=== PATIENT | male | born 1960 | race Caucasian/White ===

== ENCOUNTER 2022-01-12 10:03 | Emergency (ER) | payer OTHER, SELFPAY ==
[2022-01-12 10:26] VITALS: BP 129/85; PULSE 90; RESP 18; TEMP 36.8; O2SAT 98
--- NOTE | 2022-01-12 10:48 | ED.URI ---
HPI - URI/Sore Throat General Chief Complaint: Ear Stated Complaint: lt ear pain Time Seen by Provider: 01/12/22 10:40 Source: patient Mode of arrival: ambulatory Limitations: no limitations History of Present Illness HPI Narrative: Patient presents today complaining of left ear pressure and pain since this morning. Denies decreased hearing or drainage. He has had some ongoing nasal congestion and sinus symptoms for the last several days as well. He currently rates pain 6/10 and has tried no medication for symptoms prior to arrival as he states he has run out of his [employer]. Related Data Home Medications Medication Instructions Recorded Confirmed aspirin 81 mg tablet,delayed 1 tablet DAILY 01/12/22 01/12/22 release diclofenac sodium 75 mg 1 tablet PO DAILY 01/12/22 01/12/22 tablet,delayed release ezetimibe 10 mg tablet 1 tablet DAILY 01/12/22 01/12/22 lisinopril 10 mg tablet 1 tablet DAILY 01/12/22 01/12/22 pantoprazole 40 mg tablet,delayed 1 tablet PO DAILY 01/12/22 01/12/22 release Allergies Allergy/AdvReac Type Severity Reaction Status Date / Time No Known Allergies Allergy Verified 01/12/22 10:31 Review of Systems Review of Systems: CONSTITUTIONAL: Denies body aches, fever, chills, or sweats. EYES: Denies visual changes, redness, or discharge. ENT: Denies rhinorrhea, sore throat. + Congestion, left ear pain CARDIOVASCULAR: Denies chest pain, palpitations, or edema. RESPIRATORY: Denies cough or dyspnea. GASTROINTESTINAL: Denies abdominal pain, nausea, vomiting, or diarrhea. GENITOURINARY: Denies dysuria or hematuria. SKIN: Denies rash, itching, or wounds. MUSCULOSKELETAL: Denies back pain, joint pain, or myalgia. NEUROLOGIC: Denies headache, numbness, tingling, or weakness. PSYCH: Denies depression or anxiety. PMFSH Comments At time of signature, I have reviewed and agree with nursing past medical, surgical, social and family history unless otherwise noted. Please see nursing chart for further information. There is no relevant family history pertinent to the presenting complaint Exam Narrative: GENERAL: Well-appearing, well-nourished, and in no acute distress. HEAD: Normocephalic, atraumatic. EYES: EOMI. No redness or drainage. Conjunctivae normal. ENT: Mucous membranes pink and moist. Nares clear. No rhinorrhea. Right TM normal. Left TM erythematous and bulging. Throat normal. NECK: Normal AROM. Supple. No lymphadenopathy. CHEST: No respiratory distress. Clear to auscultation. HEART: Regular rate and rhythm. No murmur appreciated. Normal peripheral pulses. EXTREMITIES: Normal range of motion. No edema. SKIN: Warm, dry, no rash. Capillary refill normal. Normal skin turgor. NEURO: No focal deficits. Alert and oriented x3. Gait steady. PSYCH: Normal affect. No signs of depression or anxiety. Course Course Level of Care: Express Care Visit Vital Signs Vital signs: Vital Signs Temperature 98.2 F 01/12/22 10:26 Pulse Rate 90 01/12/22 10:26 Respiratory Rate 18 01/12/22 10:26 Blood Pressure 129/85 01/12/22 10:26 Pulse Oximetry 98 01/12/22 10:26 Oxygen Delivery Room Air 01/12/22 10:26 Temperature 98.2 F 01/12/22 10:26 Pulse Rate 90 01/12/22 10:26 Respiratory Rate 18 01/12/22 10:26 Blood Pressure 129/85 01/12/22 10:26 Pulse Oximetry 98 01/12/22 10:26 Oxygen Delivery Room Air 01/12/22 10:26 Reviewed. Pt has been instructed to follow up with his PCP regarding his elevated blood pressure today. MDM - URI/Sore Throat Differential Diagnosis Differential diagnosis: Likely upper respiratory infection, otitis media, sinusitis and other (otitis externa, ruptured TM, serous otitis, eustachian tube dysfunction) Discharge Plan Discharge Clinical Impression: Acute left otitis media Patient Disposition: Home, Self-Care Condition: Stable Instructions: Antibiotic Form, Ear Infection (GEN) Additional Instructions: Take Augmentin an
== END 2022-01-12 11:03 | disposition home or self-care (01) ==
PROVIDERS: Emergency Provider Nurse Practitioner
DX: H66.92 Otitis media, unspecified, left ear (principal); E78.00 Pure hypercholesterolemia, unspecified; I10 Essential (primary) hypertension; M19.90 Unspecified osteoarthritis, unspecified site
CPT/HCPCS: 99213; G0463

== ENCOUNTER 2022-06-15 03:58 | Emergency (ER) | payer OTHER, SELFPAY ==
--- NOTE | ~2022-06-15 | XR_ITS ---
XR chest 2V DATE: 06/15/2022 04:21 INDICATION: Chest pain TECHNIQUE: Portable upright AP chest on 06/15/2022 at 0418 hours COMPARISON: 03/08/2019 2 view chest FINDINGS: Borderline heart size. No pulmonary infiltrate or consolidation, pleural effusion or pulmonary mass congestion or pneumothor ax. Severe bilateral glenohumeral osteoarthritis. Mild thoracic dextroscoliosis. IMPRESSION: No active pulmonary disease Severe bilateral glenohumeral osteoarthritis Reviewed, dictated and finalized at location A. TAL MARKETING ANALYST
[2022-06-15 04:04] VITALS: BP 165/93; PULSE 70; RESP 14; TEMP 36.4; O2SAT 99
--- NOTE | 2022-06-15 04:05 | ECG_ITS ---
Measurements Intervals [place] Rate: 71 P: 26 [place]: 168 QRS: 35 QRSD: 88 T: 39 QT: 371 QTc: 404 Interpretive Statements SINUS RHYTHM NORMAL ECG NO PREVIOUS ECG AVAILABLE FOR COMPARISON Electronically Signed On 06-15-2022 9:11:33 SHOTGUN SHELL REPRINTING UNIT OPERATOR by Orlando Cedillo D.O.
[2022-06-15 04:16] LABS: Basophils Percent Auto 0.5 % (0.2-1.2); Eosinophils Absolute Auto 0.5 K/mm3 (0-0.3); Eosinophils Percent Auto 6.4 % (0-4.4); Hematocrit 46.1 % (42.0-52.0); Hemoglobin 15.3 g/dL (14.0-18.0); Immature Granulocyte Absolute 0.03 K/mm3 (0.00-0.031); Immature Granulocyte Percent A 0.4 % (0-0.5); Lymphocytes Absolute Auto 1.55 K/mm3 (0.9-3.2); Lymphocytes Percent Auto 20.2 % (18.3-44.2); Mean Corpuscular HGB Conc 33.2 g/dl (32-36); Mean Corpuscular Hemoglobin 31.9 pg (26-34); Mean Platelet Volume 9.8 fl (7.4-10.4); Monocytes Absolute Auto 0.6 K/mm3 (0.1-0.6); Monocytes Percent Auto 7.9 % (2.6-8.5); Neutrophils Percent Auto 64.6 % (45.5-73.1); Platelet Count Result 211 k/mm3 (150-375); Red Cell Distribution Width 13.7 % (11.5-14.5); White Blood Count 7.7 K/mm3 (4.5-10.0)
--- NOTE | 2022-06-15 04:16 | ED.CHESTPAIN ---
HPI - Chest Pain General Chief Complaint: Chest Pain Stated Complaint: chest pain Time Seen by Provider: 06/15/22 04:04 History of Present Illness HPI narrative: Patient is a 61-year-old male with a history of CAD status post stent, hypertension, hyperlipidemia presenting with chest pain. Patient states that he woke from sleep approximately 6 hours ago with left-sided chest squeezing. States that he also feels very anxious and restless. States that he took some Xanax to see if it would help since he has anxiety. States that it initially helped a little but then the pain returned. He denies shortness of breath, diaphoresis, nausea. Denies radiation to his back. Denies recent fevers, cough, abdominal pain, leg swelling. Related Data Home Medications Medication Instructions Recorded Confirmed aspirin 81 mg tablet,delayed 1 tablet DAILY 01/12/22 01/12/22 release diclofenac sodium 75 mg 1 tablet PO DAILY 01/12/22 01/12/22 tablet,delayed release ezetimibe 10 mg tablet 1 tablet DAILY 01/12/22 01/12/22 lisinopril 10 mg tablet 1 tablet DAILY 01/12/22 01/12/22 pantoprazole 40 mg tablet,delayed 1 tablet PO DAILY 01/12/22 01/12/22 release Allergies Allergy/AdvReac Type Severity Reaction Status Date / Time No Known Allergies Allergy Verified 06/15/22 04:08 Review of Systems Review of Systems: All systems reviewed & are unremarkable except as noted in HPI and below Exam Narrative: GENERAL: Anxious appearing but in no acute distress HEAD: Normocephalic, atraumatic. EYES: PERRLA and EOMI. ENT: Nares clear, no rhinorrhea or epistaxis. Mucous membranes moist. NECK: Supple. CHEST: Clear to auscultation. No respiratory distress. No chest wall tenderness HEART: Regular rate and rhythm. No murmur heard. Normal peripheral pulses. ABDOMEN: Soft, nontender, nondistended, normal active bowel sounds. EXTREMITIES: Normal range of motion. No edema. SKIN: Warm, dry, no rash. NEURO: No focal deficits. Alert and oriented x3. PSYCH: Very anxious and fidgety Course Vital Signs Vital signs: Vital Signs Temperature 97.6 F 06/15/22 04:04 Pulse Rate 70 06/15/22 04:04 Respiratory Rate 14 06/15/22 04:04 Blood Pressure 165/93 H 06/15/22 04:04 Pulse Oximetry 99 06/15/22 04:04 Oxygen Delivery Room Air 06/15/22 04:04 Temperature 97.6 F 06/15/22 04:04 Pulse Rate 60 06/15/22 05:50 Respiratory Rate 17 06/15/22 05:50 Blood Pressure 151/93 H 06/15/22 05:50 Pulse Oximetry 99 06/15/22 05:50 Oxygen Delivery Room Air 06/15/22 04:04 MDM - Chest Pain MDM Narrative Medical decision making narrative: Patient is a 61-year-old male presenting with chest pain. Patient is hypertensive, though his vitals are within normal limits. Exam remarkable for the above. EKG per my interpretation shows normal sinus rhythm, normal axis and intervals, no ST elevations or depressions. It appears similar to prior EKG from 2016. Patient states that the nitro did nothing for his pain. Patient was given a dose of morphine which she states helped for about 20 minutes. Repeat EKG was obtained for ongoing chest pain. Per my interpretation it shows normal sinus rhythm, no ST elevations or depressions, no changes from prior EKG. We will add a D-dimer. Patient's pulled me aside to let me know that the patient's dad was placed on hospice earlier today. She is concerned that symptoms are related to anxiety and panic stemming from this. Patient was given a dose of Ativan and had significant improvement of his symptoms. He was able to rest comfortably. Troponin is undetectable. HEART score is 3. Patient and his are asking to go home. Discussed with the patient that if he has any more chest pain then I would want to keep him in the hospital. Patient states that he wants to go home and he will return if anything gets worse. Advised very close PCP follow-up. Patient discharged in stable condition. Lab Data 06/15
[2022-06-15 04:28] LABS: Alanine Aminotransferase 64 U/L (6-50); Albumin Level 4.3 g/dL (3.5-5.1); Alkaline Phosphatase 109 U/L (38-126); Anion Gap 9 mmol/L (8-16); Aspartate Amino Transferase 51 U/L (17-59); Bilirubin,Total 0.6 mg/dL (0.2-1.3); Blood Urea Nitrogen 17 mg/dL (9-20); Calcium 9.3 mg/dL (8.4-10.2); Carbon Dioxide 25 mmol/L (22-30); Chloride 106 mmol/L (98-107); Estimated CRCL calculation 95 ml/min; Estimated Glomerular Filt Rate > 60; Glucose 122 mg/dL (65-110); Lipase 85 U/L (23-300); Potassium 4.5 mmol/L (3.4-5.0); Sodium 140 mmol/L (137-145)
[2022-06-15] MEDS: ASPIRIN 81 MG CHEWABLE TABLET 324 MG PO (04:28)
[2022-06-15] MEDS: NITROGLYCERIN SL 0.4 MG TABLET SUBLINGUAL (04:29)
[2022-06-15 04:33] LABS: Prothrombin Time 13.1 Seconds (11.1-14.7)
[2022-06-15 04:34] VITALS: BP 172/103
[2022-06-15 04:34] LABS: Partial Thromboplastin Time 28.1 SECONDS (22.3-36.8)
--- NOTE | 2022-06-15 04:34 | PC.NURSE ---
2nd nitro tab given SL.
[2022-06-15 04:39] LABS: Troponin I < 0.012 ng/mL (0.000-0.034)
[2022-06-15 04:40] VITALS: BP 151/98
--- NOTE | 2022-06-15 04:40 | PC.NURSE ---
3rd nitro given SL.
[2022-06-15] MEDS: MORPHINE SULFATE (*CRX) 4 MG/ML INJ IV PUSH (04:45)
[2022-06-15 05:00] VITALS: PULSE 64
[2022-06-15] MEDS: LORazepam INJ (*CRX) 2 MG/ML VIAL 1 MG IV PUSH (05:44)
[2022-06-15 05:50] VITALS: BP 151/93; PULSE 60; RESP 17; O2SAT 99
[2022-06-15 06:47] LABS: D Dimer 0.68 ug/mL (<0.48)
--- NOTE | 2022-06-15 06:59 | ECG_ITS ---
Measurements Intervals [place] Rate: 63 P: 27 [place]: 175 QRS: 41 QRSD: 89 T: 42 QT: 388 QTc: 400 Interpretive Statements SINUS RHYTHM NORMAL ECG COMPARED TO ECG 06/15/2022 04:08:48 NO SIGNIFICANT CHANGES Electronically Signed On 06-15-2022 9:11:44 TRIM MACHINE ADJUSTER by Orlando Cedillo D.O.
== END 2022-06-15 07:00 | disposition home or self-care (01) ==
PROVIDERS: Emergency Provider Emergency Medicine; PCP Nurse Practitioner Family
DX: R07.89 Other chest pain (principal); F41.9 Anxiety disorder, unspecified; I10 Essential (primary) hypertension; E78.5 Hyperlipidemia, unspecified; I25.10 Atherosclerotic heart disease of native coronary artery without angina pectoris; Z95.5 Presence of coronary angioplasty implant and graft; Z79.82 Long term (current) use of aspirin
CPT/HCPCS: 36415; 71046; 80053; 83690; 84484; 85025; 85380; 85610; 85730; 93005; 96374; 96375; 99284; A9270; J2060; J2270

== ENCOUNTER 2025-03-12 11:14 | Emergency (ER) | payer OTHER, SELFPAY ==
--- OUTSIDE RECORDS SUMMARY | 2024-09-26 10:30 | XMS_ITS ---
Author Organization [facility] Address [address] [facility] [address] [place], [place] [id number] Care Team Providers Care Sand Car Worker Name Role Phone Ruchi Ivory Primary Care Provider Unavailab Tito Murray Unavailable [phone] REASON FOR VISIT hearing aid evaluation Encounters Encounter Location Date Provider Diagnosis [facility] [address] [place], [place] [id number] 09/26/2024 Tito Hale Mixed conductive and sensorineural hearing loss, unilateral, right ear, with unrestricted hearing on the contralateral side H90.71 Assessments Encounter Date Diagnosis (ICD Code) Assessment Notes Treatment Notes Treatment Clinical Notes Section Notes 09/26/2024 Mixed conductive and sensorineural hearing loss, unilateral, right ear, with unrestricted hearing on the contralateral side (ICD-10 - H90.71) Plan Of Treatment No Information Progress Notes * Sahil WILLISDOB:1960 ( 64 yo M)Acc No.[id number]:09/26/2024 Progress Note Patient: Sahil CUI Provider: Maureen Hale DO :1960 A ge:63 Y S ex:Male Date:09/26/2024 Address:[address] [facility] [place], [place] Pcp:Ruchi Ivory Subjective: * Chief Complaints: * 1 . Hearing aid evaluation. * Medical History: Objective: * Vitals: * Physical Examination: Assessment: * Assessment: 1. M ixed conductive and sensorineural hearing loss, unilateral, right ear, with unrestricted hearing on the contralateral side - H90.71 Plan: * Treatment: * Procedure Codes: V 5010 ASSESSMENT FOR HEARING AID * Images: * Electronic signature of Yonatan Hale DO on 03/12/2025 at 11:17 AM CDT Sign off status: Pending * Provider: Maureen Hale DO Date: 0 09/26/2024 Generated for Harris torres/Emily/Ferminitting on: 0 03/12/2025 11:17 AM CDT
--- OUTSIDE RECORDS SUMMARY | 2024-10-27 10:00 | XMS_ITS ---
Author Organization [facility] [place] Address [address] [facility] [address] [place], [place] [id number] Care Team Providers Care Farm Hand Name Role Phone Ruchi Ivory Primary Care Provider Unavailab Tito Murray Unavailable [phone] REASON FOR VISIT hearing aid fitting Encounters Encounter Location Date Provider Diagnosis [facility] [address] [place] [id number] 10/27/2024 Tito Hale Mixed conductive and sensorineural hearing loss, unilateral, right ear, with unrestricted hearing on the contralateral side H90.71 Assessments Encounter Date Diagnosis (ICD Code) Assessment Notes Treatment Notes Treatment Clinical Notes Section Notes 10/27/2024 Mixed conductive and sensorineural hearing loss, unilateral, right ear, with unrestricted hearing on the contralateral side (ICD-10 - H90.71) Plan Of Treatment No Information Progress Notes * Sahil WILLISDOB:1960 ( 64 yo M)Acc No.[id number]:10/27/2024 Progress Note Patient: Sahil CUI Provider: Maureen Hale DO :1960 A ge:63 Y S ex:Male Date:10/27/2024 Address:[address] [facility] Pcp:Ruchi Ivory Subjective: * Chief Complaints: * 1 . Hearing aid fitting. * Medical History: Objective: * Vitals: * Physical Examination: Assessment: * Assessment: 1. M ixed conductive and sensorineural hearing loss, unilateral, right ear, with unrestricted hearing on the contralateral side - H90.71 Plan: * Treatment: * Procedure Codes: V 5257 HEARING AID DIGITAL MONAURAL BTE, Modifiers: LT * Images: * Electronic signature of Yonatan Hale DO on 03/12/2025 at 11:16 AM CDT Sign off status: Pending * Provider: Maureen Hale DO Date: 0 10/27/2024 Generated for Harris torres/Emily/Ferminitting on: 0 03/12/2025 11:16 AM CDT
--- OUTSIDE RECORDS SUMMARY | 2025-03-12 11:16 | XMS_ITS | Encounter Summary ---
Author Organization [facility] Address [address] [place] [address] Care Team Providers Care Library Media Specialist Name Role Phone Ruchi Ivory NP Primary Care Provider [phone] Ruchi Ivory NP Unavailable [phone] Nicho Rosales MD Unavailable [phone] Encounter Details Date Type Department Care Team (Late st Contact Info) Description 06/20/2024 [email or web address] Systemst Message Enc [facility] Orthopedic & Sports Medicine - [place] [address] [place] [address] Tito Julien MD [address] [place] [address] Lidocaine patches Social History Tobacco Use Types Packs/Day Years Used Date Smoking Tobacco: Former Cigarettes Q uit: 08/31/2018 Passive Smoke Exposure: Never Smokeless Tobacco: Current Chew Comments:RD to psychosocial rehabilitation counselor Alcohol Use Standard Drinks/Week Comments Yes 0 (1 standard drink = 0.6 oz pur e alcohol) socially ON WEEKENDS AUDIT-C Answer Date Recorded Frequency of Alcohol Consumption 2-3 times a wee k 01/27/2020 Average Number of Drinks 10 or more 020 Frequency of Binge Drinking Weekly 01/17 PHQ-2 Answer Date Recorded Patient Health Questionnaire-2 Score 0 06/07/2024 Sex and Gender Information Value Date Recorded Sex Assigned at Male 07/25/2022 10:25 AM FELT HANGER Legal Sex Male 10:27 PM CDT Gender Identity Male 07/25/2022 10:25 AM FELT HANGER Sexual Orientation Straight 07/25/2022 10 :25 AM FELT HANGER 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 Answer Date of Assessment Author Status No 01/11/2019 1:57 PM CDT Activ e * Do you have serious difficulty walking or climbing stairs? Answer Date of Assessment Author Status No 01/11/2019 1:57 PM CDT Maryann Shine R N Active * Do you have difficulty dressing or bathing? Answer Date of Assessment Author Status No 01/11/2019 1:57 PM CDT Maryann Shine R N Active * Because of a physical, mental, or emotional condition, do you have difficulty doing errands alone such as visiting a doctor's office or shopping? Answer Date of Assessment Author Status No 01/11/2019 1:57 PM CDT Maryann Shine R N Active documented as of this encounter Mental Status * Because of a physical, mental, or emotional condition, do you have serious difficulty concentrating, remembering, or making decisions? Answer Entry Date Author Status No 01/11/2019 1:57 PM CDT Maryann Shine R N Active documented in this encounter Progress Notes * Shantel Raphael MA - 06/21/2024 8:28 AM CST Patient requesting lidocaine patches for shoulders, to Dr. Julien for review HANGER documented in this encounter Plan of Treatment Upcoming Encounters Date Type Department Care Team (Late st Contact Info) Description 03/27/2025 7:40 AM CDT Office Visit [facility] - [place] [address] [place] [address] Tito Julien MD [address] [place] [address] 03/27/2025 8:20 AM CDT Office Visit [facility] - [place] [address] [place] [address] Itz Rodrigez DO [address] [facility] [address] [place] [address] 04/21/2025 8:00 AM CDT Office Visit [facility] Family Medicine - [place] [address] [facility] [address] [place] [address] Ruchi Ivory NP [address] [place] [address] 09/01/2025 9:00 AM FELT HANGER [facility] [address] [place] [address] Maryann Fernandez PA [address] [facility], [address] [place] [address] documented as of this encounter Visit Diagnoses Not on filedocumented in this encounter Additional Health Concerns Assessment Noted Time PHQ-9 Depression Total Score: 0 06/07/20 24 8:06 AM FELT HANGER documented as of this encounter Care Teams Library Media Specialist Relationship Specialty Start Date End Date Ruchi Ivory NP [address] [place] [address] PCP - General NURSE PRACTITIONER 06/23/22 Ruchi Ivory NP [address] [place] [address] NURSE PRACTITIONER 06/23/22 Nicho Rosales MD [facility] [place]. [place] [address] [place] [address] [place] Plumber Helper INTERVENTIONAL CARDIOLOGY 09/03/18 documented as of this encounter
--- OUTSIDE RECORDS SUMMARY | 2025-03-12 11:16 | XMS_ITS | Encounter Summary ---
Author Organization [facility] Address [address] [place] [address] Care Team Providers Care Dialysis Equipment Technician Name Role Phone Ruchi Ivory NP Primary Care Provider [phone] Ruchi Ivory NP Unavailable [phone] Nicho Rosales MD Unavailable [phone] Encounter Details Date Type Department Care Team (Latest Contact Info) Description 09/30/2024 HYLT Aviationt Message Enc [facility] Orthopedic & Sports Medicine - [place] [address] [place] [address] Tito Julien MD [address] [place] [address] Shoulder excruciating pain Social History Tobacco Use Types Packs/Day Years Used Date Smoking Tobacco: Former Cigarettes Q uit: 08/31/2018 Passive Smoke Exposure: Never Smokeless Tobacco: Current Chew Comments:RD to queen's counsel Alcohol Use Standard Drinks/Week Comments Yes 0 [...] Sex Assigned at Male 07/25/2022 10:25 AM SANITATION TRUCK CLEANER Legal Sex Male 10:27 PM CDT Gender Identity Male 07/25/2022 10:25 AM SANITATION TRUCK CLEANER Sexual Orientation Straight 07/25/2022 10 :25 AM SANITATION TRUCK CLEANER 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 Not [...] R N Active documented in this encounter Plan of Treatment Upcoming Encounters Date Type Department Care Team (Late st Contact Info) Description 03/27/2025 7:40 AM CDT Office Visit [facility] Orthopedic & Sports Medicine - [place] [address] [place] [address] Tito Julien MD [address] [place] [address] 03/27/2025 8:20 AM CDT Office Visit [facility] - [address] [address] Itz Rodrigez DO [address] [facility] [address] [place] [address] 04/21/2025 8:00 AM CDT Office Visit [facility] Family Medicine - [place] [address] [facility] [address] [place] [address] Ruchi Ivory NP [address] [place] [address] [place] [address] 09/01/2025 9:00 AM SANITATION TRUCK CLEANER Office Visit [place] [facility] [address] [place] [address] Maryann Fernandez PA [address] [facility], [address] [place], [place] [address] documented as of this encounter Visit Diagnoses Not on filedocumented in this encounter Additional Health Concerns Assessment Noted Time PHQ-9 Depression Total Score: 0 06/07/20 8:06 AM SANITATION TRUCK CLEANER documented as of this encounter Care Teams Dialysis Equipment Technician Relationship Specialty Start Date End Date Ruchi Ivory NP [address] [place] [address] PCP - General NURSE PRACTITIONER 06/23/22 Ruchi Ivory NP [address] [place] [address] NURSE PRACTITIONER 06/23/22 Nicho Rosales MD [facility]. [place] [address] [place], [place] [address] [place] Recorder Helper [employer]ing INTERVENTIONAL CARDIOLOGY 09/03/18 documented as of this encounter
--- OUTSIDE RECORDS SUMMARY | 2025-03-12 11:16 | XMS_ITS | Encounter Summary ---
Author Organization [facility] Address [address] [place] [address] Care Team Providers Care Claims Representative Name Role Phone Ruchi Ivory NP Primary Care Provider [phone] Ruchi Ivory NP Unavailable [phone] Nicho Rosales MD Unavailable [phone] Encounter Details Date Type Department Care Team (Late st Contact Info) Description 05/06/2024 Glydet Message Enc [facility] Medical [facility] Orthopedic & Sports Medicine - [place] [address] [place] [address] Tito Julien MD [address] [place] [address] Appointment Social History Tobacco Use Types Packs/Day Years Used Date Smoking Tobacco: Former Cigarettes Q uit: 08/31/2018 Passive Smoke Exposure: Never Smokeless Tobacco: Current Chew Comments:RD to dependency counselor Alcohol Use Standard Drinks/Week Comments Yes 0 (1 standard drink = 0.6 oz pur e alcohol) socially ON WEEKENDS AUDIT-C Answer Date Recorded Frequency of Alcohol Consumption 2-3 times a wee k 01/27/2020 Average Number of Drinks 10 or more 020 Frequency of Binge Drinking Weekly 01/17 PHQ-2 Answer Date Recorded Patient Health Questionnaire-2 Score 0 07/24/2023 Sex and Gender Information Value Date Recorded Sex Assigned at Male 07/25/2022 10:25 AM CABLE ENGINEER Legal Sex Male 10:27 PM CDT Gender Identity Male 07/25/2022 10:25 AM CABLE ENGINEER Sexual Orientation Straight 07/25/2022 10 :25 AM CABLE ENGINEER 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 Not [...] Description 03/27/2025 7:40 AM CDT Office Visit [facility] Orthopedic & Sports Medicine - [place] [address] [place] [address] Tito Julien MD [address] [place] [address] 03/27/2025 8:20 AM CDT Office Visit [facility] Pulmonology Specialty Clinic - [address] [address] Itz Rodrigez DO [address] [facility] [address] [place] [address] 04/21/2025 8:00 AM CDT Office Visit [facility] Medical [facility] Family Medicine - [place] [address] [facility] [address] [place] [address] Ruchi Ivory NP [address] [place] [address] 09/01/2025 9:00 AM CABLE ENGINEER Office Visit [place] [facility] [address] [place] [address] Maryann Fernandez PA 3 [facility], [address] [place] [address] documented as of this encounter Visit Diagnoses Not on filedocumented in this encounter Care Teams Claims Representative Relationship Specialty Start Date End Date Ruchi Ivory NP [address] [place] [address] PCP - General NURSE PRACTITIONER 06/23/22 Ruchi Ivory NP [address] [place] [address] NURSE PRACTITIONER 06/23/22 Nicho Rosales MD [facility]. [place] [address] [place], [place] [address] [place] Shearing Machine Operator INTERVENTIONAL CARDIOLOGY 09/03/18 documented as of this encounter
--- OUTSIDE RECORDS SUMMARY | 2025-03-12 11:16 | XMS_ITS | Encounter Summary ---
Author Organization [facility] Address [facility] [place] [address] Care Team Providers Care Gripper Attacher Name Role Phone Ruchi Ivory NP Primary Care Provider [phone] Ruchi Ivory NP Unavailable [phone] Nicho Rosales MD Unavailable [phone] Encounter Details Date Type Department Care Team (Late st Contact Info) Description 11/01/2024 MyChart Message Enc [facility] Pul[facility] Specialty Clinic - [address] [address] Itz Rodrigez, DO 3 [facility] [address] [place] [address] Surgery Social History Tobacco Use Types Packs/Day Years Used Date Smoking Tobacco: Former Cigarettes Q uit: 08/31/2018 Passive Smoke Exposure: Never Smokeless Tobacco: Current Chew Comments:RD to chromosomal disorders counselor Alcohol Use Standard Drinks/Week Comments Yes 0 (1 standard drink = 0.6 oz pur e alcohol) socially ON WEEKENDS AUDIT-C Answer Date Recorded Frequency of Alcohol Consumption 2-3 times a wee k 01/27/2020 Average Number of Drinks 10 or more 020 Frequency of Binge Drinking Weekly 01/17 PHQ-2 Answer Date Recorded Patient Health Questionnaire-2 Score 0 10/24/2024 Sex and Gender Information Value Date Recorded Sex Assigned at Male 07/25/2022 10:25 AM BOTTLER HELPER Legal Sex Male 10:27 PM CDT Gender Identity Male 07/25/2022 10:25 AM BOTTLER HELPER Sexual Orientation Straight 07/25/2022 10 :25 AM BOTTLER HELPER Occupation Industry Job Start Date Job End Date [employer] Not on file Not on file Not [...] Description 03/27/2025 7:40 AM CDT Office Visit [facility] Medical [facility] Orthopedic & Sports Medicine - [place] [address] [place] [address] Tito Julien MD [address] [place] [address] 03/27/2025 8:20 AM CDT Office Visit [facility] [address] [address] Itz Rodrigez DO 3 [facility] [address] [place] [address] 04/21/2025 8:00 AM CDT Office Visit [facility] Family Medicine - [place] [address] [facility] [address] [place] [address] [address]uchi Ivory NP [address] [place] [address] 09/01/2025 9:00 AM BOTTLER HELPER Office Visit [facility] [address] [place] [address] Maryann Fernandez PA 3 [facility], [address] [place] [address] documented as of this encounter Visit Diagnoses Not on filedocumented in this encounter Additional Health Concerns Assessment Noted Time PHQ-9 Depression Total Score: 0 06/07/20 8:06 AM BOTTLER HELPER documented as of this encounter Care Teams Gripper Attacher Relationship Specialty Start Date End Date Ruchi Ivory NP [address] [place] [address] PCP - General NURSE PRACTITIONER 06/23/22 Ruchi Ivory NP [address] [place] [address] NURSE PRACTITIONER 06/23/22 Nicho Rosales MD Three [facility]. [place] [address] [place], [place] [address] [place] Tip Inserter INTERVENTIONAL CARDIOLOGY 09/03/18 documented as of this encounter
--- OUTSIDE RECORDS SUMMARY | 2025-03-12 11:17 | XMS_ITS | Encounter Summary ---
Author Organization [facility] Address [address] [place] [address] Care Team Providers Care Activities Aide Name Role Phone Jessica Negrete Carley [facility] Primary Care Provider + Ruchi Ivory NP Primary Care Provider [phone] Ruchi Ivory NP Unavailable [phone] Nicho Rosales MD Unavailable [phone] Encounter Details Date Type Department Care Team (Late st Contact Info) Description 12/25/2018 Abstract [facility] CONVERSION [address] [place] [address] , Generic Conversion, Social History Tobacco Use Types Packs/Day Years Used Date Smoking Tobacco: Former Cigarettes Q uit: 08/31/2018 Smokeless Tobacco: Current Chew Alcohol Use Standard Drinks/Week Comments Yes 0 (1 standard drink = 0.6 oz pur e alcohol) occasionally Sex and Gender Information Value Date Recorded Sex Assigned at Male 07/25/2022 10:25 AM GLASS CARRIER Legal Sex Male 10:27 PM CDT Gender Identity Male 07/25/2022 10:25 AM GLASS CARRIER Sexual Orientation Straight 07/25/2022 10 :25 AM GLASS CARRIER 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 Not on file Not on file documented as of this encounter Plan of Treatment Upcoming Encounters Date Type Department Care Team (Late st Contact Info) Description 03/27/2025 7:40 AM CDT Office Visit [facility] [place] [place] [address] [place] [address] Tito Julien MD [address] [place] [address] 03/27/2025 8:20 AM CDT Office Visit [facility] Medical [facility] Pulmonology Specialty Clinic - [place] [address] [place] [phone] Itz Rodrigez DO 3 [facility] [address] [place] [address] 04/21/2025 8:00 AM CDT Office Visit [facility] Family Medicine - [place] [address] [facility] [address] [place] [address] Ruchi Ivory, OVIDIO [address] [place] [address] 09/01/2025 9:00 AM GLASS CARRIER Office Visit [facility] [address] [place] [address] Maryann Fernandez, PA 3 [facility], [address] [place] [address] documented as of this encounter Visit Diagnoses Not on filedocumented in this encounter Additional Health Concerns Infection Onset Date Last Indicated Resolved Time COVID-19 Rule Out 07/02/2022 07/02/2022 07/02/2022 8:52 AM GLASS CARRIER COVID-19 Rule Out 07/02/2022 07/02/2022 07/03/2022 2:53 PM GLASS CARRIER documented as of this encounter Care Teams Activities Aide Relationship Specialty Start Date End Date Jessica Negrete, INSPECTOR STRUCTURAL BONDING-BC [address] [place] [phone] PCP - General NURSE PRACTITIONER 08/20/18 06/22/22 Ruchi Ivory NP [address] [place] [address] PCP - General NURSE PRACTITIONER 06/23/22 Ruchi Ivory NP [address] [place] [address] NURSE PRACTITIONER 06/23/22 Nicho Rosales MD [facility] [address] [facility], [place] [id number] Alexandra Automatic Equipment Technician INTERVENTIONAL CARDIOLOGY 09/03/18 documented as of this encounter
--- OUTSIDE RECORDS SUMMARY | 2025-03-12 11:17 | XMS_ITS | Clinical Summary ---
Author Organization [facility] Address [address] [place] [address] Care Team Providers Care Diet Therapist Name Role Phone Ruchi Ivory MD Primary Care Provider [phone] Allergies Active Allergy Reactions Criticality Noted Date Comments Fzdtoad-Tya-Zwn Reductase Inhibitors Muscle pain Medium 01/06/[address] (VOLTAREN) 75 mg EC tablet TAKE 1 TABLET BY MOUTH TWICE DAILY WITH FOOD NEEDED 12/10/19 16 Active lisinopril (PRINIVIL,ZESTRIL) 5 mg tablet Take 1 tablet (5 mg total) by mouth daily. 30 tablet 09/02/19 19 Active Additional Information Patient not taking.Reported on 05/11/[address] (PROTONIX) 40 mg EC tabletIndications:T reatment of Non-Bleeding Gastric Disorder Take 1 tablet (40 mg total) by mouth daily. 30 tablet 09/02/19 19 Active aspirin 81 mg chewable tabletIndications:C erebral Thromboembolism Prevention,Cerebral Ischemia Take 1 tablet (81 mg total) by mouth daily. 30 tablet 09/02/19 19 Active aspirin-calcium carbonate 81 mg-300 mg calcium(777 mg) tablet Take 81 mg by mouth daily 11/24/19 14 Active clopidogreL (PLAVIX) 75 mg tablet clopidogrel 75 mg tablet 11/30/19 20 Active fluticasone propionate (FLONASE) 50 mcg/actuation nasal spray fluticasone propionate 50 mcg/actuation nasal spray,suspensio n Active evolocumab 140 mg/mL pen injector Inject 1 mL (140 mg total) under the skin every 2 (two) weeks 07/25/19 Active Durolane 60 mg/3 mL syringe 04/15/20 Active silver sulfadiazine (SILVADENE, SSD) 1 % cream Apply topically daily 05/08/20 Active testosterone cypionate (DEPO-TESTOTERONE) 200 mg/mL injection 1 mL (200 mg total) once a week Active Active Problems Problem Noted Date Diagnosed Date Atherosclerotic heart diseas e of [place] coronary artery without angina pectoris 01/06/2023 Overview (01/06/2023): Last Assessment & Plan: No anginal symptoms Continued on MMT with aspirin and Zetia Adding repatha Dyslipidemia 01/06/2023 Overview (01/06/2023): Last Assessment & Plan: Most recent lipid panel obtained June 2022 with an LDL of 121. Currently on Zetia 10 mg a day. Previous intolerance to statins Adding repatha Repeat lipid alt and ck in 2 months Chronic pain of both shoulders 11/28/2022 Atherosclerotic heart diseas e of [place] coronary artery without angina pectoris 04/10/2020 Chest pain 04/10/2020 Dyslipidemia 04/10/2020 Gout 04/10/2020 Mixed hyperlipidemia 04/10/2020 Prediabetes 03/21/2020 Cramps of lower extremity 03/08/2019 Hypertensive disorder 03/08/2019 Gastroesophageal reflux disease without esophagi tis 03/08/2019 Obesity 03/08/2019 Ex-smoker 02/16/2019 TIA (transient ischemic attack) 01/11/2019 History of CVA (cerebrovascular accident) 2018 Status post insertion of micheal g-eluting stent into left anterior descending artery 11/08/2018 Essential hypertension 11/08/2018 Overview (01/06/2023): Last Assessment & Plan: Well-controlled on current regimen continued on lisinopril 10 mg a day History of artificial joint 08/20/2016 Osteoarthritis of knee 05/24/2015 Arthropathy of hand 02/27/2014 Pain of hand 02/27/2014 Immunizations Immunization Administration Dates Next Due Influenza, Quadrivalent, Spl it, Preservative Free, Intramuscular 04/30/2023,09/01/2018 Influenza, Trivalent, Preser vative Free, Intramuscular 04/08/2012 Influenza, Unspecified 05/20/2022,2020,07/03/2020,09/01,08/31/2015,04/08/2012 Pneumococcal Polysaccharide PPV23 03/08/2019 Tdap 03/08/2019 Surgical History Surgery Date Site/Laterality Comments JOINT REPLACEMENT CELIAC ARTERY STENT Medical History Medical History Date Comments Arthritis Hypertension Hypercholesteremia Stroke (HCC) Family History Medical History Relation Name Comments Arthritis Father Family history of arthritis - (Added by TW Conv) Arthritis Mother Family history of arthritis - (Added by TW Conv) Relation Name Status Comments Father Mother Social History Tobacco Use Types Packs/Day Years Used Date Smoking Tobacco: Former Cigarettes 0.5 15 2 004 - 2018 Smokeless Tobacco: Current Chew Tobacco Cessation:Ready to Q uit: No; Counseling Given: Yes Comments:Also chews tobacco Alcohol Use Standard Drinks/Week Comments Yes 10 (1 standard drink = 0.6 oz pu re alcohol) PHQ-2 Answer Date Recorded PHQ-2 Score 0 03/10/2019 Sex and Gender Information Value Date Recorded Sex Assigned at Not on file Legal Sex Male 8:07 PM INFORMATICS PHYSICIAN LIAISON Gender Identity Not on file Sexual Orientation Not on file Obstetrics History Last Filed Vital Signs Vital Sign Reading Time Taken Comments Blood Pressure 125/77 12/24/2018 11:29 AM CDT Pulse 85 12/24/2018 11:29 AM CDT Temperature 36.6 C (97.9 F) 09/01/2018 1:00 PM INFORMATICS PHYSICIAN LIAISON Respiratory Rate 18 09/01/2018 1:00 PM INFORMATICS PHYSICIAN LIAISON Oxygen Saturation 96% 09/01/2018 1:00 PM INFORMATICS PHYSICIAN LIAISON Inhaled Oxygen Concentration - - Weight 106.6 kg (235 lb) 04/10/2020 8:49 AM CDT Height 177.8 cm (5' 10) 04/10/2020 8:49 AM CDT Body Mass Index 33.72 04/10/2020 8:49 AM CDT Plan of Treatment Health Maintenance Due Date Last Done Comments Colon Cancer Screening-Colonoscopy 1961 Hepatitis C Screening 1960 Prostate Cancer Screening-PSA 1961 Hepatitis B Screening 11/17/1979 Regular Well Visit/Exam 18-64 11/17/1979 Zoster Vaccine (1 of 2) 11/17/2011 Depression Screening 08/31/2019 08/31/2018, 08/31/19 19 Influenza Vaccine (#1) 2025 3, 05/20/2022, 06/06/2021, Additional history exists DTaP/Tdap/Td Vaccine (2 - Td or Tdap) 03/08/2029 03/08/2019 Pneumococcal vaccine <65 Aged Out 03/08/2019 No longer eligible based on patient's age to complete this topic Insurance [facility] OPEN ACCESS [facility] Advance Directives For more information, please contact: [phone] * Full Code (Latest Code Status on File) Date Activated Date Inactivated Comments 08/31/2018 11:11 PM 09/01/2018 9:35 PM Care Teams Diet Therapist Relationship Specialty Start Date End Date Ruchi Ivory MD PCP - General Nurse Practitioner 01/06/23
--- OUTSIDE RECORDS SUMMARY | 2025-03-12 11:17 | XMS_ITS | Encounter Summary ---
Author Organization [facility] Address [address] [place] [address] Care Team Providers Care Fabrication And Assembly Supervisor Name Role Phone Ruchi Ivory NP Primary Care Provider [phone] Ruchi Ivory NP Unavailable [phone] Nicho Rosales MD Unavailable [phone] Encounter Details Date Type Department Care Team (Late st Contact Info) Description 03/28/2024 Ocisiont Message Enc [facility] Medical Group Family Medicine - [place] [address] [facility] [address] [place] [address] Ruchi Ivory, OVIDIO [address] [place], [place] [id number] Blood clot Social History Tobacco Use Types Packs/Day Years Used Date Smoking Tobacco: Former Cigarettes Q uit: 08/31/2018 Passive Smoke Exposure: Never Smokeless Tobacco: Current Chew Comments:RD to counseling program leader Alcohol Use Standard Drinks/Week Comments Yes 0 [...] Sex Assigned at Male 07/25/2022 10:25 AM THERMOPLASTIC TECHNICIAN Legal Sex Male 10:27 PM CDT Gender Identity Male 07/25/2022 10:25 AM THERMOPLASTIC TECHNICIAN Sexual Orientation Straight 07/25/2022 10 :25 AM THERMOPLASTIC TECHNICIAN 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 * Yecenia Jordan MD - 04/04/2024 10:19 AM CDT Xray results look reassuring. I suspect conservative observation will be what Ruchi recommends, but I will defer to her. She will be here tomorrow. * Tiara Murray MA - 04/01/2024 10:30 AM CDT I tried calling the radiology department but no one answered. I will try again later. * Ruchi Ivory NP - 04/01/2024 10:13 AM CDT Can you call radiology to see if someone can read pt's xrays that are still in process. documented in this encounter Plan of Treatment Upcoming Encounters Date Type Department Care Team (Late st Contact Info) Description 03/27/2025 7:40 AM CDT Office Visit [facility] Orthopedic & Sports Medicine - [place] [address] [place] [address] Tito Julien MD [address] [place] [address] 03/27/2025 8:20 AM CDT Office Visit [facility] Pulmonology Specialty Clinic - [address] [phone] Itz Rodrigez DO 3 [facility] [address] [place] [address] 04/21/2025 8:00 AM CDT Office Visit [facility] Family Medicine - [place] [address] [facility] [address] [place] [address] Ruchi Ivory NP [address] [place] [address] 09/01/2025 9:00 AM THERMOPLASTIC TECHNICIAN [facility] [address] [place] [address] Maryann Fernandez PA 3 [facility], [address] [place] [address] documented as of this encounter Visit Diagnoses Not on filedocumented in this encounter Care Teams Fabrication And Assembly Supervisor Relationship Specialty Start Date End Date Ruchi Ivory NP [address] [place] [address] PCP - General NURSE PRACTITIONER 06/23/22 Ruchi Ivory NP [address] [place] [address] NURSE PRACTITIONER 06/23/22 Nicho Rosales MD [address] [facility]. [address] [place] [address] [place] Stonemason Apprentice INTERVENTIONAL CARDIOLOGY 09/03/18 documented as of this encounter
--- OUTSIDE RECORDS SUMMARY | 2025-03-12 11:17 | XMS_ITS | Encounter Summary ---
Author Organization [facility] Address [facility] [place] [address] Care Team Providers Care Child Adolescent Care Name Role Phone Ruchi Ivory NP Primary Care Provider [phone] Ruchi Ivory NP Unavailable [phone] Nicho Rosales MD Unavailable [phone] Encounter Details Date Type Department Care Team (Late st Contact Info) Description 02/18/2024 Conferensumt Message Enc [facility] Medical Group Pulmonology Specialty Clinic [address] [address] Itz Rodrigez DO 3 [facility] [address] [place] [address] Follow up Social History Tobacco Use Types Packs/Day Years Used Date Smoking Tobacco: Former Cigarettes Q uit: 08/31/2018 Passive Smoke Exposure: Never Smokeless Tobacco: Current Chew Comments:RD to insurance counsel Alcohol Use Standard Drinks/Week Comments Yes [...] Sex Assigned at Male 07/25/2022 10:25 AM DISPATCHER CHIEF COAL SLURRY Legal Sex Male 10:27 PM CDT Gender Identity Male 07/25/2022 10:25 AM DISPATCHER CHIEF COAL SLURRY Sexual Orientation Straight 07/25/2022 10 :25 AM DISPATCHER CHIEF COAL SLURRY 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 Not [...] Description 03/27/2025 7:40 AM CDT Office Visit [facility] Medical Group Orthopedic & Sports Medicine - [place] [address] [place] [address] Tito Julien MD [address] [place] [address] 03/27/2025 8:20 AM CDT Office Visit [facility] Medical Group Pulmonology Specialty Clinic [address] [address] Itz Rodrigez DO 3 [facility] [address] [place] [address] 04/21/2025 8:00 AM CDT Office Visit [facility] Medical Group Family Medicine - [place] [address] [facility] [address] [place] [address] Ruchi Ivory NP [address] [place] [address] [place] [address] 09/01/2025 9:00 AM DISPATCHER CHIEF COAL SLURRY Office Visit [place] [facility] [address] [place] [phone] Maryann Fernandez PA 3 [facility], [address] [place] [address] documented as of this encounter Visit Diagnoses Not on filedocumented in this encounter Care Teams Child Adolescent Care Relationship Specialty Start Date End Date Ruchi Ivory NP [address] [place] [address] [place] [address] PCP - General NURSE PRACTITIONER 06/23/22 Ruchi Ivory NP [address] [place] [address] NURSE PRACTITIONER 06/23/22 Nicho Rosales MD Three [facility]. [address] [place], [place] [address] [place] Hot End Operator INTERVENTIONAL CARDIOLOGY 09/03/18 documented as of this encounter
--- OUTSIDE RECORDS SUMMARY | 2025-03-12 11:17 | XMS_ITS | Encounter Summary ---
Author Organization [facility] Address [address] [place] [address] Care Team Providers Care Computer Graphic Artist Name Role Phone Ruchi Ivory NP Primary Care Provider [phone] Ruchi Ivory NP Unavailable [phone] Nicho Rosales MD Unavailable [phone] Encounter Details Date Type Department Care Team (Late st Contact Info) Description 12/28/2023 [place] Message [facility] [address] [place] [address] Nicho Rosales MD [address] [address] Carotid Artery Social History Tobacco Use Types Packs/Day Years Used Date Smoking Tobacco: Former Cigarettes Q uit: 08/31/2018 Passive Smoke Exposure: Never Smokeless Tobacco: Current Chew Comments:RD to counselor manager Alcohol Use Standard Drinks/Week Comments Yes 0 [...] Sex Assigned at Male 07/25/2022 10:25 AM OBSTETRIC ANAESTHETIST Legal Sex Male 10:27 PM CDT Gender Identity Male 07/25/2022 10:25 AM OBSTETRIC ANAESTHETIST Sexual Orientation Straight 07/25/2022 10 :25 AM OBSTETRIC ANAESTHETIST 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 If he is having any concerning stroke like symptoms, then recommend ER for expedited evaluation. Otherwise, keep scheduled carotids in January. * Venita Coppola RN - 12/29/2023 9:42 AM CDT Please advise. * Camille Saldivar - 12/29/2023 9:17 AM CDT Earliest carotid in [place] is 01/21. Pt highly concerned about waiting that long since the patient has a history of strokes. wants to know if we can do this as stat? * Venita Coppola RN - 12/29/2023 9:00 AM CDT . * Venita Coppola RN - 12/28/2023 4:48 PM CDT Please schedule thank you! * ARVIN Wen - 12/28/2023 4:14 PM CDT Please order bilateral carotid ultrasound DX carotid artery calcifications * Venita Coppola RN - 12/28/2023 4:07 PM CDT Please advise. documented in this encounter Plan of Treatment Upcoming Encounters Date Type Department Care Team (Late st Contact Info) Description 03/27/2025 7:40 AM CDT Office Visit [facility] Medical Group Orthopedic & Sports Medicine - [place] [address] [place] [address] Tito Julien MD [address] [place] [address] 03/27/2025 8:20 AM CDT Office Visit [facility] Medical Group Pulmonology Specialty Clinic - [place] [address] [place] [address] Itz Rodrigez DO 3 [facility] [address] [place] [address] 04/21/2025 8:00 AM CDT Office Visit [facility] Medical [facility] Family Medicine - [place] [address] [facility] [address] [place] [address] Ruchi Ivory NP [address] [place] [address] 09/01/2025 9:00 AM OBSTETRIC ANAESTHETIST Office Visit [facility] [address] [place] [phone] Maryann Fernandez PA 3 [facility], [address] [place] [address] documented as of this encounter Visit Diagnoses Not on filedocumented in this encounter Care Teams Computer Graphic Artist Relationship Specialty Start Date End Date Ruchi Ivory NP [address] [place] [address] PCP - General NURSE PRACTITIONER 06/23/22 Ruchi Ivory NP [address] [place] [address] NURSE PRACTITIONER 06/23/22 Nicho Rosales MD Three [facility]. [address] [place] [address] [place] Lead Architect INTERVENTIONAL CARDIOLOGY 09/03/18 documented as of this encounter
--- OUTSIDE RECORDS SUMMARY | 2025-03-12 11:17 | XMS_ITS | Patient Health Record ---
Author Organization [facility] Address [address] [facility] [address] [place], [place] [address] Care Team Providers Care Harness Mender Name Role Phone Ruchi Ivory Primary Care Provider Unavailab Tito Murray Unavailable [phone] Migration, Provider Unavailable Unavailable Allergies No Known Allergies Reason For Referral No Information Medications Medication SIG (Take, Route, Frequency, Duration) Notes Start Date End Date Status Diclofenac Potassium *Please rev iew and pick correct strength-formulatio n from Medispan options. If intended option is not shown, discontinue and re-order from Quick Search* Active Aspirin Low Dose *Please review and pick correct strength-formulatio n from Medispan options. If intended option is not shown, discontinue and re-order from Quick Search* Active Pantoprazole Sodium *Please revi ew and pick correct strength-formulatio n from Medispan options. If intended option is not shown, discontinue and re-order from Quick Search* Active Lisinopril *Please review a nd pick correct strength-formulatio n from Medispan options. 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 (disorder) (2709730254) Mixed conductive and sensorineural hearing loss, unilateral, right ear, with unrestricted hearing on the contralateral side (H90.71) Active confirmed Encounters Encounter Location Date Provider Diagnosis [facility] [address] [facility] [address] [place], [place] [id number] 07/02/2024 Provider Migration [facility] [address] [facility] [address] [place], [place] [id number] 09/26/2024 Tito Hale Mixed conductive and sensorineural hearing loss, unilateral, right ear, with unrestricted hearing on the contralateral side H90.71 [facility] [place] [address] [place], [place] [id number] 10/27/2024 Tito Hale Mixed conductive and sensorineural hearing loss, unilateral, right ear, with unrestricted hearing on the contralateral side H90.71 [facility] [address] [facility] [address] [place], [place] [id number] 03/28/2024 Tito Hale Sensorineural hearin g loss, unilateral, left ear, with restricted hearing on the contralateral side H90.A22 and Encounter for examination of ears and hearing without abnormal findings Z01.10 [facility] [address] [facility] [address] [place], [place] [id number] 07/27/2024 Tito Hale Sensorineural hearin g loss, unilateral, left ear, with restricted hearing on the contralateral side H90.A22 and Other specified disorders of Eustachian tube, left ear H69.82 [facility] [address] [facility] [address] [place], [place] [id number] 09/09/2024 Tito Hale [facility] [address] [facility] [address] [place], [place] [id number] 09/29/2024 Tito Hale Assessments Encounter Date Diagnosis (ICD Code) Assessment Notes Treatment Notes Treatment Clinical Notes Section Notes 09/26/2024 Mixed conductive and sensorineural hearing loss, unilateral, right ear, with unrestricted hearing on the contralateral side (ICD-10 - H90.71) 10/27/2024 Mixed conductive and sensorineural hearing loss, unilateral, right ear, with unrestricted hearing on the contralateral side (ICD-10 - H90.71) 03/28/2024 Sensorineural hearing loss, unilateral, left ear, with restricted hearing on the contralateral side (ICD-10 - H90.A22) unchanged per the pt, will repeat audio in 3 mos 03/28/2024 Encounter for examination of ears and hearing without abnormal findings (ICD-10 - Z01.10) 07/27/2024 Sensorineural hearing loss, unilateral, left ear, with restricted hearing on the contralateral side (ICD-10 - H90.A22) hearing aid evaluation hearing conservation measures discussed Follow up in one year for annual audiogram. 07/27/2024 Other specified disorders of Eustachian tube, left ear (ICD-10 - H69.82) Plan Of Treatment No Information Insurance Providers Payer Name Payer Address Payer Phone Subscriber Number Group Number Insured Name Patient Relationship to Insured Coverage Start Date Coverage End Date [facility] [address] [place] [address] [id number] Sahil Self - patient is the insured
--- OUTSIDE RECORDS SUMMARY | 2025-03-12 11:17 | XMS_ITS | Encounter Summary ---
Author Organization [facility] Address [address] [place] [address] Care Team Providers Care Pre Billing Clinician Name Role Phone Ruchi Ivory NP Primary Care Provider [phone] Ruchi Ivory NP Unavailable [phone] Nicho Rosales MD Unavailable [phone] Encounter Details Date Type Department Care Team (Late st Contact Info) Description 03/09/2024 Viroprot Message Enc [facility] Family Medicine - [place] [address] [facility] [address] [place] [phone] Ruchi Ivory, OVIDIO [address] [place], [place] [phone] Shoulder Social History Tobacco Use Types Packs/Day Years Used Date Smoking Tobacco: Former Cigarettes Q uit: 08/31/2018 Passive Smoke Exposure: Never Smokeless Tobacco: Current Chew Comments:RD to peer counselor Alcohol Use Standard Drinks/Week Comments Yes [...] Sex Assigned at Male 07/25/2022 10:25 AM BRIQUETTE MACHINE OPERATOR Legal Sex Male 10:27 PM CDT Gender Identity Male 07/25/2022 10:25 AM BRIQUETTE MACHINE OPERATOR Sexual Orientation Straight 07/25/2022 10 :25 AM BRIQUETTE MACHINE OPERATOR Occupation Industry Job Start Date Job End Date [employer] Not on file Not on file Not [...] Medical Group Orthopedic & Sports Medicine - [place] [address] [place] [address] Tito Julien MD [address] [place] [address] 03/27/2025 8:20 AM CDT Office Visit [facility] Pulmonology Specialty Clinic - [address] [address] RodrigezItz kwok DO 3 [facility] [address] [place] [address] 04/21/2025 8:00 AM CDT Office Visit [facility] Family Medicine - [place] [address] [facility] [address] [place] [address] Ruchi Ivory NP [address] [place] [address] 09/01/2025 9:00 AM BRIQUETTE MACHINE OPERATOR Office Visit [place] [facility] [address] [place] [phone] Maryann Fernandez PA 3 [facility], [address] [place] [address] documented as of this encounter Visit Diagnoses Not on filedocumented in this encounter Care Teams Pre Billing Clinician Relationship Specialty Start Date End Date Ruchi Ivory NP [address] [place] [address] PCP - General NURSE PRACTITIONER 06/23/22 Ruchi Ivory NP [address] [place] [address] NURSE PRACTITIONER 06/23/22 Nicho Rosales MD Three [facility]. [address] [place], [place] [address] [place] Cherry Pitter INTERVENTIONAL CARDIOLOGY 09/03/18 documented as of this encounter
--- OUTSIDE RECORDS SUMMARY | 2025-03-12 11:17 | XMS_ITS | Encounter Summary ---
Author Organization [facility] Address [address] [place] [address] Care Team Providers Care Machine Heddle Cleaner Name Role Phone Ruchi Ivory NP Primary Care Provider [phone] Ruchi Ivory NP Unavailable [phone] Nicho Rosales MD Unavailable [phone] Encounter Details Date Type Department Care Team (Late st Contact Info) Description 10/06/2023 [facility] Message Enc [facility] Orthopedic & Sports Medicine - [place] [address] [place] [address] Tito Julien MD [address] [place] [address] Shoulder shots Social History Tobacco Use Types Packs/Day Years Used Date Smoking Tobacco: Former Cigarettes Q uit: 08/31/2018 Passive Smoke Exposure: Never Smokeless Tobacco: Current Chew Comments:RD to credit counselor Alcohol Use Standard Drinks/Week Comments Yes 0 (1 standard drink = 0.6 oz pur e alcohol) socially AUDIT-C Answer Date Recorded Frequency of Alcohol Consumption 2-3 times a wee k 01/27/2020 Average Number of Drinks 10 or more 020 Frequency of Binge Drinking Weekly 01/17 PHQ-2 Answer Date Recorded Patient Health Questionnaire-2 Score 0 07/24/2023 Sex and Gender Information Value Date Recorded Sex Assigned at Male 07/25/2022 10:25 AM CUSTOMER EXPERIENCE INTERN Legal Sex Male 10:27 PM CDT Gender Identity Male 07/25/2022 10:25 AM CUSTOMER EXPERIENCE INTERN Sexual Orientation Straight 07/25/2022 10 :25 AM CUSTOMER EXPERIENCE INTERN 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 Not [...] Description 03/27/2025 7:40 AM CDT Office Visit [facility] Orthopedic & Sports Medicine - [place] [address] [place] [address] Tito Julien MD [address] [place] [address] 03/27/2025 8:20 AM CDT Office Visit [facility] Pulmonology Specialty Clinic - [address] [address] Itz Rodrigez DO [address] [facility] [address] [place] [address] 04/21/2025 8:00 AM CDT Office Visit [facility] Family Medicine - [place] [address] [facility] [address] [place] [address] Ruchi Ivory NP [address] [place] [address] 09/01/2025 9:00 AM CUSTOMER EXPERIENCE INTERN Office Visit [place] [facility] [address] [place] [address] Maryann Fernandez PA 3 [facility], [address] [place] [address] documented as of this encounter Visit Diagnoses Not on filedocumented in this encounter Care Teams Machine Heddle Cleaner Relationship Specialty Start Date End Date Ruchi Ivory NP [address] [place] [address] PCP - General NURSE PRACTITIONER 06/23/22 Ruchi Ivory NP [address] [place] [address] NURSE PRACTITIONER 06/23/22 Nicho Rosales MD Three [facility]. [address] [place], [place] [address] [place] Cat Wagon Operator INTERVENTIONAL CARDIOLOGY 09/03/18 documented as of this encounter
--- OUTSIDE RECORDS SUMMARY | 2025-03-12 11:17 | XMS_ITS | Encounter Summary ---
Author Organization [facility] Address [address] [place] [address] Care Team Providers Care Dial Marker Name Role Phone Ruchi Ivory NP Primary Care Provider [phone] Ruchi Ivory NP Unavailable [phone] Nicho Rosales MD Unavailable [phone] Encounter Details Date Type Department Care Team (Latest Contact Info) Description 02/21/2025 Results Follow-Up [facility] Family Medicine - [place] [address] [facility] [address] [place] [phone] Ruchi Ivory, PLANNING RN [address] [place] [address] [place] [phone] COMPREHENSIVE METABOLIC PANEL, CBC W/DIFF AUTOMATED, TSH W/REFLEX Social History Tobacco Use Types Packs/Day Years Used Date Smoking Tobacco: Former Cigarettes Q uit: 08/31/2018 Passive Smoke Exposure: Never Smokeless Tobacco: Current Chew Comments:RD to careers counsellor Alcohol Use Standard Drinks/Week Comments Yes 0 [...] Sex Assigned at Male 07/25/2022 10:25 AM APPLICATION SUPPORT MANAGER Legal Sex Male 10:27 PM CDT Gender Identity Male 07/25/2022 10:25 AM APPLICATION SUPPORT MANAGER Sexual Orientation Straight 07/25/2022 10 :25 AM APPLICATION SUPPORT MANAGER 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 Not [...] Description 03/27/2025 7:40 AM CDT Office Visit [facility] Orthopedic & Sports Medicine - [place] [address] [place] [address] Tito Julien MD [address] [place] [address] 03/27/2025 8:20 AM CDT Office Visit [facility] Pulmonology Specialty Clinic - [address] [address] Itz Rodrigez DO 3 [facility] [address] [place] [address] 04/21/2025 8:00 AM CDT Office Visit [facility] Family Medicine - [place] [address] [facility] [address] [place] [address] Ruchi Ivory NP [address] [place] [address] 09/01/2025 9:00 AM APPLICATION SUPPORT MANAGER Office Visit [place] [facility] [address] [place] [address] Maryann Fernandez PA 3 [facility], [address] [place], [place] [address] documented as of this encounter Visit Diagnoses Not on filedocumented in this encounter Additional Health Concerns Assessment Noted Time PHQ-9 Depression Total Score: 0 06/07/20 8:06 AM APPLICATION SUPPORT MANAGER documented as of this encounter Care Teams Dial Marker Relationship Specialty Start Date End Date Ruchi Ivory NP [address] [place] [address] PCP - General NURSE PRACTITIONER 06/23/22 Ruchi Ivory NP [address] [place] [address] NURSE PRACTITIONER 06/23/22 Nicho Rosales MD Three [facility]. [address] [place], [place] [address] [place] Cotton Ginner Helper INTERVENTIONAL CARDIOLOGY 09/03/18 documented as of this encounter
--- OUTSIDE RECORDS SUMMARY | 2025-03-12 11:17 | XMS_ITS | Encounter Summary ---
Author Organization [facility] Address [facility] [place] [address] Care Team Providers Care Cross Tie Cutter Name Role Phone Ruchi Ivory NP Primary Care Provider [phone] Ruchi Ivory NP Unavailable [phone] Nicho Rosales MD Unavailable [phone] Encounter Details Date Type Department Care Team (Late st Contact Info) Description 12/16/2023 Power Surge Electrict Message Enc [facility] Pulmonology Specialty Clinic [address] [address] Itz Rodrigez, DO 3 [facility] [address] [place] [address] Sleep study Social History Tobacco Use Types Packs/Day Years Used Date Smoking Tobacco: Former Cigarettes Q uit: 08/31/2018 Passive Smoke Exposure: Never Smokeless Tobacco: Current Chew Comments:RD to compliance counsel Alcohol Use Standard Drinks/Week Comments Yes [...] Sex Assigned at Male 07/25/2022 10:25 AM REPACK ROOM WORKER Legal Sex Male 10:27 PM CDT Gender Identity Male 07/25/2022 10:25 AM REPACK ROOM WORKER Sexual Orientation Straight 07/25/2022 10 :25 AM REPACK ROOM WORKER 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 Not [...] Author Status No 01/11/2019 1:57 PM CDT Mrayann Shine R N Active documented in this encounter Plan of Treatment Upcoming Encounters Date Type Department Care Team (Late st Contact Info) Description 03/27/2025 7:40 AM CDT Office Visit [facility] Orthopedic & Sports Medicine - [place] [address] [place] [address] Tito Julien MD [address] [place] [address] 03/27/2025 8:20 AM CDT Office Visit [facility] Pul[facility]ty Clinic [address] [address] Itz Rodrigez DO 3 [facility] [address] [place] [address] 04/21/2025 8:00 AM CDT Office Visit [facility] Family Medicine - [place] [address] [facility] [address] [place] [address] Ruchi Ivory NP [address] [place] [address] [place] [address] 09/01/2025 9:00 AM REPACK ROOM WORKER Office Visit [place] [facility] [address] [place] [address] Maryann Fernandez PA 3 [facility], [address] [place] [address] documented as of this encounter Visit Diagnoses Not on filedocumented in this encounter Care Teams Cross Tie Cutter Relationship Specialty Start Date End Date Ruchi Ivory NP [address] [place] [address] PCP - General NURSE PRACTITIONER 06/23/22 Ruchi Ivory NP [address] [place] [address] NURSE PRACTITIONER 06/23/22 Nicho Rosales MD Three [facility]. [address] [place], [place] [address] [place] Tour Agent INTERVENTIONAL CARDIOLOGY 09/03/18 documented as of this encounter
--- OUTSIDE RECORDS SUMMARY | 2025-03-12 11:17 | XMS_ITS | Clinical Summary ---
Author Organization [facility] Address [address] [place] [address] Care Team Providers Care Windows Desktop Support Name Role Phone Unavailable Primary Care Provider Unavailabl e Encounters Date Type Department Care Team Description 02/16/2025 8:05 AM CDT - 02/16/2025 11:59 PM CDT Hospital Encounter [facility] [address] [address] Karthikeyan Choudhary MD Discharge Disposition: Home or Self Care 01/10/2025 External Device Data STL ABSTRACTION Provider, Abstract 12/22/2024 8:40 AM CDT Ancillary Procedure [address] [phone] Karthikeyan Choudhary MD Localized osteoarthritis of right shoulder 12/22/2024 8:35 AM CDT Ancillary Procedure [facility] [address] [address] Karthikeyan Choudhary MD Left shoulder pain from Last 3 Months Social History Tobacco Use Types Packs/Day Years Used Date Smoking Tobacco: Never Assessed Sex and Gender Information Value Date Recorded Sex Assigned at Not on file Legal Sex Male 9:18 AM TELEPHONE SERVICE ADVISER Gender Identity Not on file Sexual Orientation Not on file Plan of Treatment Health Maintenance Due Date Last Done Comments Pre-Diabetes and Diabetes Screening 1961 FIT-DNA Q 3 years 2006 FIT/FOBT Q 1 year 2006 Flex Sig/CT Colonography Q 5 years 2006 ZOSTER VACCINE (1 of 2) 11/17/2011 INFLUENZA VACCINE (#1) 2025 , 04/30/2023, 04/08/2012 DTAP/TDAP/TD VACCINES (2 - T d or Tdap) 03/08/2029 03/08/2019 COLORECTAL SCREENING 12/27/2034 12/27/2024, 12/27/2024, 12/26/2024, Additional history exists Colorectal Cancer Screening 12/27/2034 RSV VACCINE (60+ or ) (1 - 1-dose 75+ series) 2036 Procedures Procedure Name Priority Date/Time Associated Diagnosis Comments XR SHOULDER 2+ VW RIGHT Routine 02/16/2025 8:16 AM CDT Pain XR SHOULDER 2+ VW RIGHT Routine 12/22/2024 8:52 AM CDT Localized osteoarthritis of right shoulder XR SHOULDER 2+ VW LEFT Routine 12/22/2024 8:52 AM CDT Left shoulder pain from Last 3 Months Results * XR SHOULDER 2+ VW RIGHT (02/16/2025 8:16 AM CDT) Only the most recent of2 resultswithin the time period is included. Anatomical Region Laterality Modality Upper Extremity Computed Radiogr aphy 02/16/2025 8:16 AM CDT Impressions 02/16/2025 8:22 AM CDT IMPRESSION: Right shoulder arthroplasty with no complications. Mild acromioclavicular joint arthropathy. Narrative 02/16/2025 8:22 AM CDT EXAM: XR SHOULDER 2+ VW RIGHT STUDY DATE: 02/16/2025 8:16 AM CLINICAL INDICATION: Pain COMPARISON: Right shoulder radiograph 12/22/2024 PROCEDURE: AP, Grashey, scapular and axillary views of the right shoulder were obtained. FINDINGS: There is slight shoulder reverse arthroplasty with no hardware complications. No acute fracture. There is mild acromioclavicular joint arthropathy. Procedure Note Neida Castellanos MD - 02/16/2025 EXAM: XR SHOULDER 2+ VW RIGHT STUDY DATE: 02/16/2025 8:16 AM CLINICAL INDICATION: Pain COMPARISON: Right shoulder radiograph 12/22/2024 PROCEDURE: AP, Grashey, scapular and axillary views of the right shoulder were obtained. FINDINGS: There is slight shoulder reverse arthroplasty with no hardware complications. No acute fracture. There is mild acromioclavicular joint arthropathy. IMPRESSION: Right shoulder arthroplasty with no complications. Mild acromioclavicular joint arthropathy. us Karthikeyan Choudhary MD DIAGNOSTIC IMAGING [facility] Final Result * XR SHOULDER 2+ VW LEFT (12/22/2024 8:52 AM CDT) Anatomical Region Laterality Modality Upper Extremity Computed Radiogr aphy 12/22/2024 8:52 AM CDT Impressions 12/22/2024 8:58 AM CDT IMPRESSION: 1. Severe degenerative change of the glenohumeral joint and mild spurring of the AC joint. Narrative 12/22/2024 8:58 AM CDT EXAM: XR SHOULDER 2+ VW LEFT DATE: 12/22/2024 HISTORY: Left shoulder pain COMPARISON: None. FINDINGS: No acute fracture is noted. There is degenerative change at the glenohumeral joint with joint space narrowing, subchondral cystic change, and spur formation noted. A 1.1 cm corticated free fragment is noted inferior to the glenohumeral joint. There is mild spurring of the AC joint.. Limited views of the left chest reveal no acute pulmonary findings. Procedure Note All Smtih MD - 12/22/2024 EXAM: XR SHOULDER 2+ VW LEFT DATE: 12/22/2024 HISTORY: Left shoulder pain COMPARISON: None. FINDINGS: No acute fracture is noted. There is degenerative change at the glenohumeral joint with joint space narrowing, subchondral cystic change, and spur formation noted. A 1.1 cm corticated free fragment is noted inferior to the glenohumeral joint. There is mild spurring of the AC joint.. Limited views of the left chest reveal no acute pulmonary findings. IMPRESSION: 1. Severe degenerative change of the glenohumeral joint and mild spurring of the AC joint. us Karthikeyan Choudhary MD DIAGNOSTIC IMAGING [facility] Final Result from Last 3 Months Insurance [employer] CHOICE FUND OA PLUS CIGNA OPEN ACCESS HMO CIGNA OPEN ACCESS HMO CIG[employer] CHOICE FUND OA PLUS
--- OUTSIDE RECORDS SUMMARY | 2025-03-12 11:17 | XMS_ITS | Encounter Summary ---
Author Organization [facility] Address [address] [place] [id number] Care Team Providers Care Wood Filler Name Role Phone Jessica Negrete Carley [facility] Primary Care Provider + Ruchi Ivory NP Primary Care Provider [phone] Ruchi Ivory NP Unavailable [phone] Nicho Rosales MD Unavailable [phone] Encounter Details Date Type Department Care Team (Late st Contact Info) Description 08/07/2020 [facility] [id number] Liberty Rosario MA Social History Tobacco Use Types Packs/Day Years Used Date Smoking Tobacco: Former Cigarettes Q uit: 08/31/2018 Smokeless Tobacco: Current Chew Alcohol Use Standard Drinks/Week Comments Yes 0 (1 standard drink = 0.6 oz pur e alcohol) AUDIT-C Answer Date Recorded Frequency of Alcohol Consumption 2-3 times a wee k 01/27/2020 Average Number of Drinks 10 or more 020 Frequency of Binge Drinking Weekly 01/17 Sex and Gender Information Value Date Recorded Sex Assigned at Male 07/25/2022 10:25 AM NURSE HEALTHCARE MANAGER Legal Sex Male 10:27 PM CDT Gender Identity Male 07/25/2022 10:25 AM NURSE HEALTHCARE MANAGER Sexual Orientation Straight 07/25/2022 10 :25 AM NURSE HEALTHCARE MANAGER 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 Unable to assess 08/03/2020 4:05 PM NURSE HEALTHCARE MANAGER documented as of this encounter Functional Status [...] Description 03/27/2025 7:40 AM CDT Office Visit [facility] Orthopedic & Sports Medicine - [place] [address] [place] [address] Tito Julien MD [address] [place] [address] 03/27/2025 8:20 AM CDT Office Visit [facility] - [address] [address] Itz Rodrigez DO [address] [facility] [address] [place] [address] 04/21/2025 8:00 AM CDT Office Visit [facility] Family Medicine - [place] [address] [facility] [address] [place] [address] Ruchi Ivory NP [address] [place] [address] 09/01/2025 9:00 AM NURSE HEALTHCARE MANAGER Office Visit [facility] [address] [place] [phone] Maryann Fernandez PA [address] [facility], [address] [place] [address] documented as of this encounter Procedures Procedure Name Priority Date/Time Associated Diagnosis Comments LIPID PANEL Routine 12/26/2020 LIPID PANEL Routine 07/17/2020 HEMOGLOBIN, GLYCOSYLATED Routine 07/17/2020 CBC (OUTSIDE LAB) Routine 03/12/2020 PROSTATE SPECIFIC ANTIGEN,TOTAL Routine 03/12/2020 COMPREHENSIVE METABOLIC PANEL Routine 03/12/2020 LIPID PANEL Routine 03/12/2020 HEMOGLOBIN, GLYCOSYLATED Routine 03/12/2020 THYROID STIM HORMONE TSH Routine 03/12/2020 VITAMIN D, 25 OH Routine 03/12/2020 documented in this encounter Results * LIPID PANEL (12/26/2020) CHOLESTEROL 180 HDL 37 TRIGLYCERIDES 105 NON HDL CHOLESTEROL 143 LDL (CALCULATED) 122 12/26/2020 [facility] Final Result * LIPID PANEL (07/17/2020) CHOLESTEROL 127 HDL 32 TRIGLYCERIDES 159 NON HDL CHOLESTEROL 95 LDL (CALCULATED) 71 07/17/2020 [facility] Edited Resul t - Final * HEMOGLOBIN, GLYCOSYLATED (07/17/2020) HGB A1C 5.5 % 07/17/2020 [facility] Final Result * CBC (OUTSIDE LAB) (03/12/2020) Pathologist [facility] WBC 5.3 HGB 14.6 HCT 45.1 PLT 225 03/12/2020 [facility] LAB-OUTSIDE/ABSTRACTED Final Result * LIPID PANEL (03/12/2020) CHOLESTEROL 121 HDL 33 TRIGLYCERIDES 124 LDL (CALCULATED) 63 03/12/2020 [facility] Final Result * COMPREHENSIVE METABOLIC PANEL (03/12/2020) SODIUM S/P/B 138 POTASSIUM S/P/B 4.4 CO2 26 CHLORIDE S/P/B 106 GLUCOSE 110 mg/dL CALCIUM S/P/B 9.3 BUN 18 CREATININE S/P/B 0.99 0.7 - 1.3 EGFR NON-AFR. AMER. >60 <=90 ALKALINE PHOSPHATASE S/P/B 88 ALT 39 AST 28 BILIRUBIN TOTAL S/P/B 0.60 ALBUMIN S/P/B 3.9 3.5 - 5.0 TOTAL PROTEIN S/P/B 6.8 GLOBULIN 2.9 03/12/2020 [facility] Edited Resul t - Final * THYROID STIM HORMONE, TSH (03/12/2020) TSH 0.838 03/12/2020 [facility] Edited Resul t - Final * PROSTATE SPECIFIC ANTIGEN,TOTAL (03/12/2020) PSA 0.36 03/12/2020 [facility] Edited Resul t - Final * VITAMIN D, 25 OH (03/12/2020) VITAMIN D 25 HYDROXY S/P/B 51.8 03/12/2020 [facility] Edited Resul t - Final * HEMOGLOBIN, GLYCOSYLATED (03/12/2020) HGB A1C 6.0 % 03/12/2020 [facility] Edited Resul t - Final documented in this encounter Visit Diagnoses Not on filedocumented in this encounter Additional Health Concerns Infection Onset Date Last Indicated Resolved Time COVID-19 Rule Out 07/02/2022 07/02/2022 07/02/2022 8:52 AM NURSE HEALTHCARE MANAGER COVID-19 Rule Out 07/02/2022 07/02/2022 07/03/2022 2:53 PM NURSE HEALTHCARE MANAGER documented as of this encounter Care Teams Wood Filler Relationship Specialty Start Date End Date Jessica Negrete FNP- [address] [place] [id number] PCP - General NURSE PRACTITIONER 08/20/18 06/22/22 Ruchi Ivory NP [address] [place] [address] PCP - General NURSE PRACTITIONER 06/23/22 Ruchi Ivory NP [address] [place] [address] NURSE PRACTITIONER 06/23/22 Nicho Rosales MD [facility] [address] [place] [address] [employer] F[employer] INTERVENTIONAL CARDIOLOGY 09/03/18 documented as of this encounter
--- OUTSIDE RECORDS SUMMARY | 2025-03-12 11:17 | XMS_ITS | Clinical Summary ---
Author Organization [facility] Address [facility] [place] [address] Care Team Providers Care Bread Room Hand Name Role Phone Ruchi Ivory NP Primary Care Provider [phone] Ruchi Ivory NP Unavailable [phone] Nicho Rosales MD Unavailable [phone] Allergies No known active allergies Medications diclofenac sodium 75 MG tablet Take 1 tablet (75 mg total) by mouth 2 (two) times daily. 3 Active aspirin 81 MG tablet Take 1 tablet (81 mg total) by mouth daily. 4 Active pantoprazole 40 MG tablet Take 1 tablet (40 mg total) by mouth daily. 9 Active fluticasone propionate (FLONASE) 50 MCG/ACT nasal spray as needed. 2 Active nitroglycerin (NITROSTAT) 0.[address] 1 tablet (0.4 mg total) under the tongue every 5 (five) minutes as needed for Chest Pain. Maximum of 3 doses. If taking 3rd dose call 911. 25 tablet 1 3 Active albuterol sulfate HFA 108 (90 Base) MCG/ACT inhalerIndicatio ns:Acute cough,Wheezing INHALE 2 PUFFS BY MOUTH INTO THE LUNGS EVERY 6 HOURS NEEDED FOR WHEEZING OR SHORTNESS OF BREATH 18 g 4 Active Additional Information Patient taking differently: 2 puff Inhalation Every 6 hours PRN, Reported on 02/22/2025 Na sulfate-K sulfate-Mg sulfate (SUPREP BOWEL PREP KIT) 17.5-3.13-1.6 GM/177ML SolutionIndicati ons:Screening for colon cancer Take 177 mLs by mouth every 12 (twelve) hours. Per GI instructions 354 mL 4 Active Additional Information Patient not taking.Reported on 02/22/2025 lidocaine (HM LIDOCAINE PATCH) 4 % patchIndications :Osteoarthritis of left glenohumeral joint,Osteoarthr itis of glenohumeral joint, right Place 1 patch onto the skin daily. Remove & Discard patch within 12 hours or as directed by 30 patch 4 Active polyethylene glycol (GOLYTELY) 236 g solutionIndicati ons:Screening for colon cancer 4 liters to be taken by mouth as directed for bowel prep. 4000 mL 5 Active lisinopril (PRINIVIL) 10 MG tabletIndication s:Essential hypertension Take 1 tablet (10 mg total) by mouth daily. 90 tablet 5 Active Active Problems Problem Noted Date Diagnosed Date Osteoarthritis of glenohumeral joints, bilateral 03/28/2024 Overview (03/28/2024): Following with ortho Dr. Julien. Pt also taking Hydrocodone for severe pain only since Tylenol and NSAIDs were not controlling his pain alone. Next follow up is in April. Assessment & Plan (03/28/2024 7:45 AM CDT): Follow with ortho as directed. Avoid driving or operating any machinery while taking Hydrocodone. Gastroesophageal reflux disease without esophagi tis 03/28/2024 Overview (03/28/2024): Taking pantoprazole 40mg daily. Assessment & Plan (03/28/2024 7:47 AM CDT): Continue pantoprazole 40mg daily. GERD education discussed. NAT (obstructive sleep apnea) 03/28/2024 Overview (03/28/2024): Has severe NAT. On CPAP. Following with pulm Dr. Rodrigez for management. Assessment & Plan (03/28/2024 7:48 AM CDT): Resume CPAP compliance. Courage good sleep hygiene. Avoid driving or operating any machinery while fatigued. Pain and swelling of lower extremity, left 03/28 Overview (03/28/2024): A few weeks ago started noticing some swelling to his left lower leg and ankle. Reports he has what he thinks is a tender tendon in the left lateral aspect of his foot. He reports some numbness and tingling to the top of his foot. Denies any recent injury or trauma. No history of DVT. No redness or warmth noted. Assessment & Plan (03/28/2024 8:25 AM CDT): Will obtain venous duplex to r/o DVT. Will notify pt once back with results. Obesity (BMI 30-39.9) 03/28/2024 Overview (03/28/2024): Is taking Ozempic from another provider. Tolerating well. Assessment & Plan (03/28/2024 8:25 AM CDT): Encourage following a low fat, low carb diet, encorperate whole foods such as fresh fruits and vegetables and whole grains into your diet, encourage 5 small meals per day. Avoid sugar-sweetened beverages, added sugars, processed meats, refined grains and oils or other processed foods. Encourage to get at least 150 minutes of moderate aerobic activity or 75 minutes of vigorous aerobic activity a week, or a combination of moderate and vigorous activity. Difficult airway for intubation 10/28/2023 Chronic pain of both shoulders 11/28/2022 TIA (transient ischemic attack) 01/11/2019 History of CVA (cerebrovascular accident) 2018 Assessment & Plan (09/09/2024 5:58 PM BIOFUELS TECHNOLOGY DEVELOPMENT MANAGER): Continue aspirin. Trying statin therapy as above. Assessment & Plan (07/31/2023 11:05 AM BIOFUELS TECHNOLOGY DEVELOPMENT MANAGER): Continue aspirin. 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 Essential hypertension 11/08/2018 Overview (03/28/2024): Well-controlled with lisinopril 10 mg daily. Assessment & Plan (09/09/2024 5:58 PM BIOFUELS TECHNOLOGY DEVELOPMENT MANAGER): His blood pressure is well-controlled. Continue lisinopril. Assessment & Plan (03/28/2024 7:46 AM CDT): BP stable. No changes needed at this time. Goal for BP to stay below 140/90. Encourage lifestyle modifications to include healthy eating, decrease salt and caffeine in diet, routine exercise, and weight loss, Assessment & Plan (07/31/2023 11:06 AM BIOFUELS TECHNOLOGY DEVELOPMENT MANAGER): His blood pressure is well-controlled. Continue lisinopril. Assessment & Plan (07/25/2022 7:57 AM BIOFUELS TECHNOLOGY DEVELOPMENT MANAGER): Well-controlled on current regimen continued on lisinopril 10 mg a day History of artificial joint 08/20/2016 Localized osteoarthritis of left knee 05/24/2015 Arthropathy of hand 02/27/2014 Atherosclerotic heart diseas e of [place] coronary artery without angina pectoris Overview (03/28/2024): Follows with cardiology Dr. Rosales. Pt cannot tolerate any statin therapy, Zetia or PCSK9 inhibitor. Assessment & Plan (09/09/2024 5:57 PM BIOFUELS TECHNOLOGY DEVELOPMENT MANAGER): He is currently not having angina. Continue aspirin. He cannot tolerate any lipid-lowering therapy. He has tried Zetia, all statins and the PCSK9 inhibitor. I have asked him to try Crestor once a week. Assessment & Plan (03/28/2024 7:42 AM CDT): Resume following with cardio as directed. Encourage lifestyle modifications. Assessment & Plan (07/31/2023 10:09 AM BIOFUELS TECHNOLOGY DEVELOPMENT MANAGER): He is currently not having angina. Continue aspirin. He cannot tolerate any lipid-lowering therapy. He has tried Zetia, all statins and the PCSK9 inhibitor. Assessment & Plan (07/25/2022 9:59 AM BIOFUELS TECHNOLOGY DEVELOPMENT MANAGER): No anginal symptoms Continued on MMT with aspirin and Zetia Adding repatha Mixed hyperlipidemia Overview (03/28/2024): Has mixed hyperlipidemia. He cannot tolerate any statin therapy, Zetia or PCSK9 inhibitor. Assessment & Plan (09/09/2024 5:58 PM BIOFUELS TECHNOLOGY DEVELOPMENT MANAGER): He cannot tolerate any statin therapy, Zetia or PCSK9 inhibitor. I encouraged lifestyle modification. Trying statin therapy as above. Assessment & Plan (03/28/2024 7:43 AM CDT): Encourage following a healthy well balance diet and staying active. Assessment & Plan (07/31/2023 11:05 AM BIOFUELS TECHNOLOGY DEVELOPMENT MANAGER): He cannot tolerate any statin therapy, Zetia or PCSK9 inhibitor. I encouraged lifestyle modification. Chest pain Gout Dyslipidemia Assessment & Plan (07/25/2022 9:59 AM BIOFUELS TECHNOLOGY DEVELOPMENT MANAGER): Most recent lipid panel obtained June 2022 with an LDL of 121. Currently on Zetia 10 mg a day. Previous intolerance to statins Adding repatha Repeat lipid alt and ck in 2 months Resolved Problems Problem Noted Date Diagnosed Date Resolved Date Screening for colon cancer 06/07/2024 1 08/13/2023 Encounters Date Type Department Care Team Description 02/22/2025 1:20 PM CDT Office Visit [facility] Family Medicine - [place] [address] [facility] [address] [place] [address] Ruchi Ivory NP Surgical Clearance (Patient presents for surgical clearance for total left shoulder replacement scheduled for 03/21/25) 02/22/2025 Travel 02/21/2025 Results Follow-Up [facility] [place] [address] [place] [address] Ruchi Ivory NP COMPREHENSIVE METABOLIC PANEL, CBC W/DIFF AUTOMATED, TSH W/REFLEX 02/07/2025 Telephone [place] [id number] [facility] [address] [place] [address] Ruchi Ivory NP FYI 02/02/2025 MyChart Message Enc [address] [place] [address] Ruchi Ivory NP Med 01/10/2025 Telephone [facility], [place] [address] [place] [address] Nicho Rosales MD Surgical Clearance 01/10/2025 Telephone [facility], [facility] [address] [place] [address] Armaan Spivey MD Error 12/30/[address] [place] [address] Ruchi Ivory NP Surgical Clearance (/) 12/29/2024 Scan [employer] HEALTH INFO SRVCS Scanned, [facility] 12/29/2024 Results Follow-Up [facility] [place] [address] Fortunato Russ MD Pathology 12/27/2024 2:06 PM CDT Anesthesia Event [facility] [place] [address] Eric Nettles MD Kodwani, Nand K, MD 12/27/2024 2:00 PM CDT - 12/27/2024 2:30 PM CDT Surgery [facility] [address] Fortunato Russ MD COLONOSCOPY WITH DESCENDING COLON POLYPECTOMY VIA COLD SNARE TECH AND JUMBO FORCEPS, RECTAL COLON POLYPECTOMY VIA COLD SNARE 12/27/2024 12:38 PM CDT - 12/27/2024 3:06 PM CDT Hospital Encounter [facility] [place] [address] Fortunato Russ MD Discharge Disposition: Home or Self Care (Routine Discharge) 12/27/2024 Travel 12/26/2024 9:30 AM CDT - 12/26/2024 10:00 AM CDT Surgery [facility] [place] [address] Fortunato Russ MD COLONOSCOPY 12/26/2024 9:28 AM CDT Anesthesia Event [facility] [place] [address] Eric Nettles MD 12/26/2024 8:10 AM CDT - 12/26/2024 10:25 AM [place] [address] Fortunato Russ MD Discharge Disposition: Home or Self Care (Routine Discharge) 12/26/2024 Orders Only [facility] Multispecialty Care - [facility] [address] [facility] [facility] [place] [address] Fortunato Russ MD 12/26/2024 Travel from Last 3 Months Immunizations Immunization Administration Dates Next Due Fluarix 04/08/2012 Fluzone (IIV3, Trivalent, 0. 5 ML Prefilled Syringe) 04/28/2024 Fluzone 6 Months+ Quad (0.5 mL Prefilled Syringe) 04/30/2023 Influenza (Generic) 08/31/2015,04/08/2012 Influenza Adult (Generic) 05/20/2022,,07/03/2020,2018 Pneumococcal (Pneumovax 23) 03/08/2019 Tdap (Generic) 03/08/2019 Family History Medical History Relation Comments CHF Father Heart Disease Father Rheumatoid Arthritis Mother Coronary artery disease Neg Hx Diabetes Neg Hx Stroke Neg Hx Relation Status Comments Father Alive Mother Alive Social History Tobacco Use Types Packs/Day Years Used Date Smoking Tobacco: Former Cigarettes Q uit: 08/31/2018 Passive Smoke Exposure: Never Smokeless Tobacco: Current Chew Tobacco Cessation:Ready to Q uit: Not Asked; Counseling Given: No Comments:RD to senior counsel Alcohol Use Standard Drinks/Week Comments Yes [...] Sex Assigned at Male 07/25/2022 10:25 AM BIOFUELS TECHNOLOGY DEVELOPMENT MANAGER Legal Sex Male 10:27 PM CDT Gender Identity Male 07/25/2022 10:25 AM BIOFUELS TECHNOLOGY DEVELOPMENT MANAGER Sexual Orientation Straight 07/25/2022 10 :25 AM BIOFUELS TECHNOLOGY DEVELOPMENT MANAGER 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 Not on file Not on file Last Filed Vital Signs Vital Sign Reading Time Taken Comments Blood Pressure 112/72 02/22/2025 1:28 PM CDT Pulse 96 02/22/2025 1:28 PM CDT Temperature 37.2 C (99 F) 02/22/2025 1:28 PM CDT Respiratory Rate 18 02/22/2025 1:28 PM CDT Oxygen Saturation 99% 02/22/2025 1:28 PM CDT Inhaled Oxygen Concentration - - Weight 106.6 kg (235 lb) 02/22/2025 1:28 PM CDT Height 177.8 cm (5' 10) 02/22/2025 1:28 PM CDT Body Mass Index 33.72 02/22/2025 1:28 PM CDT Plan of Treatment Upcoming Encounters Date Type Department Care Team (Late st Contact Info) Description 03/27/2025 7:40 AM CDT Office Visit [facility] - [place] [address] [place] [address] Tito Julien MD [address] [place] [address] 03/27/2025 8:20 AM CDT Office Visit [facility] - [address] [phone] Itz Rodrigez DO [address] [facility] [address] [place] [address] 04/21/2025 8:00 AM CDT Office Visit [facility] Family Medicine - [place] [address] [facility] [address] [place] [address] Ruchi Ivory NP [address] [place] [address] 09/01/2025 9:00 AM BIOFUELS TECHNOLOGY DEVELOPMENT MANAGER Office Visit [facility] [address] [place] [phone] Maryann Fernandez PA [address] [facility] [place] [address] Health Maintenance Due Date Last Done Comments ASCVD Statin 1960 Zoster Vaccines (1 of 2) 11/17/2011 Pneumococcal Vaccine: 50+ Years (2 of 2 - PCV) 03/08/2020 03/08/2019 RSV Immunization or 60+ Years (1 - Risk 60-74 years 1-dose series) 2021 COVID-19 Vaccine (1 - 2023-2 5 season) 2024 Annual Physical 03/28/2025 03/28/2024, 07/02/2022 DTaP, Tdap and Td Vaccines ( 2 - Td or Tdap) 03/08/2029 03/08/2019 Colorectal Cancer Screening Colonoscopy (10 Years) 12/27/2034 12/27/2024, 12/26/2024, 03/07/2013 Hepatitis C Completed 07/02/2022 PHQ-2 (Physician [place]) Completed 10/24/2024 Meningococcal B Vaccine Aged Out No l onger eligible based on patient's age to complete this topic Meningococcal Vaccine Aged Out No kelsey que eligible based on patient's age to complete this topic RSV Immunizations Under 20 Months Aged Out No longer eligible b ased on patient's age to complete this topic Medical Devices Implanted Type Area Road Freight Brake Coupler Device Identifier Shelf Expiration Date Model / Serial / Lot Mesh Ventralight St 4.5in [place] - [id number] Implanted:Qty: 1 on 10/28/2023 by Simone Mcintosh MD at [facility] Mesh N/A: [employer]mb[employer] [id number] 03/16/2025 [id number] / / [id number] Procedures Procedure Name Priority Date/Time Associated Diagnosis Comments TSH W/REFLEX Routine 02/20/2025 6:57 AM CDT Encounter for pre-operative laboratory testing CBC W/DIFF AUTOMATED Routine 02/20/2025 6:57 AM CDT Essential hypertension Encounter for pre-operative laboratory testing COMPREHENSIVE METABOLIC PANEL Routine 02/20/2025 6:57 AM CDT Essential hypertension Encounter for pre-operative laboratory testing COLSC FLX W/RMVL OF TUMOR POLYP LESION SNARE TQ 12/27/2024 1:57 PM CDT Screening Re-do (patient wasn't cleaned out) COLONOSCOPY Routine 12/27/2024 1:24 PM CDT PROCEDURE GENERIC 12/27/2024 7:0 8 AM CDT PATHOLOGY Routine 12/27/2024 12:00 AM CDT COLONOSCOPY FLX DX W/COLLJ SPEC WHEN PFRMD 12/26/2024 9:28 AM CDT Screening for colon cancer ECG 12-LEAD Routine 12/26/2024 9:04 AM CDT COLONOSCOPY Routine 12/26/2024 8:55 AM CDT HEPATITIS C ANTIBODY Routine 07/02/2022 9:55 AM BIOFUELS TECHNOLOGY DEVELOPMENT MANAGER Need for hepatitis C screening test COLONOSCOPY GENERIC (SCAN ORDER) 03/07/2013 from Last 3 Months or Most Recently Relevant to Health Maintenance Results * TSH W/REFLEX (02/20/2025 6:57 AM CDT) [facility] TSH 1.33 0.40 - 4.50 mIU/L [facility] 02/20/2025 6:57 AM CDT 02/20/2025 6:57 AM CDT Narrative [facility] [place] - 02/21/2025 3:30 AM CDT FASTING:YES FASTING: YES Resulting Agency Comment Performing Organization Information: Site ID: [place] Name: [facility] Address: [address] [place] [phone] Director: Berto Chacon MD us Ruchi Ivory NP LABORATORY Final Res ult [facility] [place] MEHTA [address] [address], TC * (ABNORMAL) COMPREHENSIVE METABOLIC PANEL (02/20/2025 6:57 AM CDT) [facility] GLUCOSE 112(H) 65 - 99 mg/dL [facility] Comment: Fasting reference interval For someone without known diabetes, a glucose value between 100 and 125 mg/dL is consistent with prediabetes and should be confirmed with a follow-up test. BUN 18 7 - 25 mg/dL [facility] CREATININE S/P/B 1.02 0.70 - 1.35 mg/dL [facility] GFR ESTIMATE 83 > OR = 60 mL/min/1. 73m2 [facility] BUN CREATININE RATIO SEE NOTE: (calc) [facility] Comment: Not Reported: BUN and Creatinine are within reference range. SODIUM S/P/B 140 135 - 146 mmol/L [facility] POTASSIUM S/P/B 3.9 3.5 - 5.3 mmol/L [facility] CHLORIDE S/P/B 106 98 - 110 mmol/L [facility] CO2 28 20 - 32 mmol/L [facility] CALCIUM S/P/B 9.2 8.6 - 10.3 mg/dL [facility] TOTAL PROTEIN S/P/B 6.9 6.1 - 8.1 g/dL [facility] ALBUMIN S/P/B 4.1 3.6 - 5.1 g/dL [facility] GLOBULIN 2.8 1.9 - 3.7 g/dL (calc) [facility] ALBUMIN/GLOBULI N RATIO 1.5 1.0 - 2.5 (calc) [facility] BILIRUBIN TOTAL S/P/B 0.5 0.2 - 1.2 mg/dL [facility] ALKALINE PHOSPHATASE S/P/B 137 35 - 144 U/L [facility] AST 28 10 - 35 U/L [facility] ALT 31 9 - 46 U/L [facility] 02/20/2025 6:57 AM CDT 02/20/2025 6:57 AM CDT Narrative [facility] [place] - 02/21/2025 3:30 AM CDT FASTING:YES FASTING: YES Resulting Agency Comment Performing Organization Information: Site ID: [place] Name: [facility] Address: [address] [place] [phone] Director: Berto Chacon MD us Ruchi Ivory NP LABORATORY Final Res ult [facility] [place] [address] [address], * CBC W/DIFF AUTOMATED (02/20/2025 6:57 AM CDT) WBC 4.9 3.8 - 10.8 Thousand/u L [facility] RBC 4.46 4.20 - 5.80 Million/uL [email or web address] HGB 14.0 13.2 - 17.1 g/dL [facility] HCT 43.5 38.5 - 50.0 % [facility] MCV 97.5 80.0 - 100.0 fL [facility] MCH 31.4 27.0 - 33.0 pg [facility] MCHC 32.2 32.0 - 36.0 g/dL [facility] Comment: For adults, a slight decrease in the calculated MCHC value (in the range of 30 to 32 g/dL) is most likely not clinically significant; however, it should be interpreted with caution in correlation with other red cell parameters and the patient's clinical condition. RDW 13.1 11.0 - 15.0 % [email or web address] FR[facility] PLT 174 140 - 400 Thousand/u L [facility] MPV 10.3 7.5 - 12.5 fL [facility] ABS. NEUTROPHILS 3,146 1,500 - 7,800 cells/uL [facility] ABS. LYMPHOCYTES 911 850 - 3,900 cells/uL [facility] ABS. MONOCYTES 309 200 - 950 cells/uL [facility] ABS. EOSINOPHILS 495 15 - 500 cells/uL [facility] ABS. BASOPHILS 39 0 - 200 cells/uL [facility] SEG NEUTROPHILS 64.2 % [facility] [employer] [facility] [employer] LYMPHOCYTES 18.6 % [facility] MONOCYTES 6.3 % [facility] EOSINOPHILS 10.1 % [facility] BASOPHILS 0.8 % [facility] 02/20/2025 6:57 AM CDT 02/20/2025 6:57 AM CDT Narrative [email or web address] - [place] - 02/21/2025 3:30 AM CDT FASTING:YES FASTING: YES Resulting Agency Comment Performing Organization Information: Site ID: [place] Name: [facility] Address: [address] [place] [address] Director: Berto Chacon MD us Ruchi Ivory NP LABORATORY Final Res ult [facility] [place] [facility] [address] [place] [address], * PROCEDURE GENERIC (12/27/2024 7:08 AM CDT) Fortunato Russ MD [facility] Final Result * Pathology (12/27/2024 12:00 AM CDT) PATHOLOGY [facility] Department of Laboratory Medicine [address] [place] [address] , extension [phone] Pathology Report Surgical Pathology Report Name: ANABELLE PUENTES Specimen #: [id number] Age: 4 1960 (Age: 64) Location: [facility] Sex: M Procedure Date: 12/27/2024 Hospital #: [id number] Date Received: 12/28/2024 Date Reported: 12/29/2024 Provider: FORTUNATO RUSS MD Source: A: Colon, descending, polyp B: Rectum, polyp Clinical History: Screening. FINAL DIAGNOSIS: A. Descending colon polyp, biopsy: Hyperplastic polyp. B. Rectal polyp, biopsy: Hyperplastic polyp. Gross Description: A. Received in formalin, labeled with a patient label and as descending colon polyp is a 0.2 cm piece of pink-perera tissue. The specimen is entirely submitted in cassette A1. B. Received in formalin, labeled with a patient label and as rectal polyp is a 0.3 cm piece of perera polypoid tissue. The specimen is entirely submitted in cassette B1. Gross examination (when applicable) was performed at [facility], [address] [place] [address]. This case was interpreted and signed out at [facility] [address] [place] [address]. Electronically Signed Out MARYJANE LI MD [facility] TISSUE COLON STRUCTURE / Unknown 12/27/2024 2:22 PM CDT Tissue specimen (specimen) SPECIMEN FROM RECTUM / Unknown 12/27/2024 2:24 PM CDT us Fortunato Russ MD PATHOLOGY/CYTOLOGY ORDERABLES Fi nal Result [facility] [address] [place] [address], [id number] * ECG 12 lead (12/26/2024 9:04 AM CDT) 12/26/2024 9:04 AM CDT Narrative [facility] RAD - 12/27/2024 8:[address] 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 [facility] Test Date: 2024-12-26 Pat Name: ANABELLE LOZOYATH Department: 40 Room: ODS Gender: Male Tax Economist: : 1960 Requested By: ERIC NETTLES Order Number: [id number] Reading : Oscar Swanson Measurements Intervals [place] Rate: 77 P: 19 WI: 184 QRS: 7 QRSD: 90 T: 23 QT: 373 QTc: 425 Interpretive Statements SINUS RHYTHM Compared to ECG 01/11/2019 16:18:24 No significant changes us Eric Nettles MD ECG ORDERABLES Final Result [facility] RAD * HEPATITIS C ANTIBODY (07/02/2022 9:55 AM BIOFUELS TECHNOLOGY DEVELOPMENT MANAGER) HEPATITIS C AB NON-REACTI VE NON-REACT BUZZ 07/07/2022 8:30 PM BIOFUELS TECHNOLOGY DEVELOPMENT MANAGER [facility] Comment: ANTIBODIES TO HCV NOT DETECTED. DOES NOT EXCLUDE THE POSSIBILITY OF EXPOSURE TO HCV. 07/02/2022 9:55 AM BIOFUELS TECHNOLOGY DEVELOPMENT MANAGER Ruchi Ivory INSPECT[employer] LABORATORY Final Res ult [facility] [address] [place] [address], [phone] * COLONOSCOPY GENERIC (03/07/2013) 03/07/2013 [facility] Scanned SCANNING Final Resu lt from Last 3 Months or Most Recently Relevant to Health Maintenance Insurance CIG Advance Directives * Full Code (Latest Code Status on File) Date Activated Date Inactivated Comments 12/14/2018 2:39 PM 12/14/2018 5:01 PM Care Teams Bread Room Hand Relationship Specialty Start Date End Date Ruchi Ivory NP [address] [place] [address] PCP - General NURSE PRACTITIONER 06/23/22 Ruchi Ivory NP [address] [place] [address] NURSE PRACTITIONER 06/23/[address] [facility] [address] [place] [address] [place] [employer] INTERVENTIONAL CARDIOLOGY 09/03/18
--- OUTSIDE RECORDS SUMMARY | 2025-03-12 11:17 | XMS_ITS | Encounter Summary ---
Author Organization [facility] Address [address] [place] [address] Care Team Providers Care Window Shade Cloth Sewer Name Role Phone Ruchi Ivory NP Primary Care Provider [phone] Ruchi Ivory NP Unavailable [phone] Nicho Rosales MD Unavailable [phone] Encounter Details Date Type Department Care Team (Late st Contact Info) Description 12/29/2023 LeapSky Wirelesst Message Enc [facility] Medical [facility] Family Medicine - [place] [address] [facility] [address] [place] [address] Ruchi Ivory, [place]ID[place] [address] [place], [place] [id number] Sleep study Social History Tobacco Use Types Packs/Day Years Used Date Smoking Tobacco: Former Cigarettes Q uit: 08/31/2018 Passive Smoke Exposure: Never Smokeless Tobacco: Current Chew Comments:RD to deputy chief counsel Alcohol Use Standard Drinks/Week Comments Yes [...] Sex Assigned at Male 07/25/2022 10:25 AM EMAIL DEPLOYMENT SPECIALIST Legal Sex Male 10:27 PM CDT Gender Identity Male 07/25/2022 10:25 AM EMAIL DEPLOYMENT SPECIALIST Sexual Orientation Straight 07/25/2022 10 :25 AM EMAIL DEPLOYMENT SPECIALIST 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 Not [...] Description 03/27/2025 7:40 AM CDT Office Visit [facility] Orthopedic & Sports Medicine - [place] [address] [place] [address] Tito Julien MD [address] [place] [address] 03/27/2025 8:20 AM CDT Office Visit [facility] Pulmonology Specialty Clinic - [address] [address] Itz Rodrigez DO 3 [facility] [address] [place] [address] 04/21/2025 8:00 AM CDT Office Visit [facility] Family Medicine - [place] [address] [facility] [address] [place] [address] Ruchi Ivory NP [address] [place] [address] 09/01/2025 9:00 AM EMAIL DEPLOYMENT SPECIALIST Office Visit [place] [facility] [address] [place] [phone] Maryann Fernandez PA 3 [facility], [address] [place] [address] documented as of this encounter Visit Diagnoses Not on filedocumented in this encounter Care Teams Window Shade Cloth Sewer Relationship Specialty Start Date End Date Ruchi Ivory NP [address] [place] [address] PCP - General NURSE PRACTITIONER 06/23/22 Ruchi Ivory NP [address] [place] [address] NURSE PRACTITIONER 06/23/22 Nicho [place] MD Three [facility]. [place] [address] [place], [place] [address] [place] Hospitality Recruiter INTERVENTIONAL CARDIOLOGY 09/03/18 documented as of this encounter
--- OUTSIDE RECORDS SUMMARY | 2025-03-12 11:17 | XMS_ITS | Encounter Summary ---
Author Organization [facility] Address [address] [place] [address] Care Team Providers Care Graphic Arts Instructor Name Role Phone Ruchi Ivory NP Primary Care Provider [phone] Ruchi Ivory NP Unavailable [phone] Nicho [place] MD Unavailable [phone] Encounter Details Date Type Department Care Team (Late st Contact Info) Description 01/25/2024 [email or web address] Message [facility] [address] [place] [phone] Nicho Rosalse MD [address] [address] Ultra sound Social History Tobacco Use Types Packs/Day Years Used Date Smoking Tobacco: Former Cigarettes Q uit: 08/31/2018 Passive Smoke Exposure: Never Smokeless Tobacco: Current Chew Comments:RD to family counselor Alcohol Use Standard Drinks/Week Comments Yes [...] Sex Assigned at Male 07/25/2022 10:25 AM IT ASSOCIATE Legal Sex Male 10:27 PM CDT Gender Identity Male 07/25/2022 10:25 AM IT ASSOCIATE Sexual Orientation Straight 07/25/2022 10 :25 AM IT ASSOCIATE 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 Last lipid I see was 2021. Would get fasting lipid and cmp for baseline. 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 Agree? documented in this encounter Plan of Treatment Upcoming Encounters Date Type Department Care Team (Late st Contact Info) Description 03/27/2025 7:40 AM CDT Office Visit [facility] Medical [facility] Orthopedic & Sports Medicine - [place] [address] [place] [address] Tito Julien MD [address] [place] [address] 03/27/2025 8:20 AM CDT Office Visit [facility] Pulmonology Specialty Clinic - [place] [address] [place] [phone] Itz Rodrigez DO 3 [facility] [address] [place] [address] 04/21/2025 8:00 AM CDT Office Visit [facility] Family Medicine - [place] [address] [facility] [address] [place] [address] Ruchi Ivory NP [address] [place] [address] [place] [address] 09/01/2025 9:00 AM IT ASSOCIATE Office Visit [place] [facility] [address] [place] [address] Maryann Fernandez PA 3 [facility], [address] [place], [place] [address] documented as of this encounter Visit Diagnoses Not on filedocumented in this encounter Care Teams Graphic Arts Instructor Relationship Specialty Start Date End Date Ruchi Ivory NP [address] [place] [address] PCP - General NURSE PRACTITIONER 06/23/22 Ruchi Ivory NP [address] [place] [address] NURSE PRACTITIONER 06/23/[address] [facility]. [facility] [address] [place] [address] [place] Environmental Economist INTERVENTIONAL CARDIOLOGY 09/03/18 documented as of this encounter
--- OUTSIDE RECORDS SUMMARY | 2025-03-12 11:17 | XMS_ITS | Encounter Summary ---
Author Organization [facility] Address [facility] [place] [address] Care Team Providers Care Counter Supply Worker Name Role Phone Mary Bunch MD Primary Care Provider [phone] Mary Bunch MD Primary Care Provider [phone] Jessica Negrete [facility] Primary Care Provider + Ruchi Ivory NP Primary Care Provider [phone] Ruchi Ivory NP Unavailable [phone] Nicho [place] MD Unavailable [phone] Encounter Details Date Type Department Care Team (Late st Contact Info) Description 12/28/2014 Abstract [facility] AT [address] [address] Fer Fisher MD [address] [place] [address] Social History Tobacco Use Types Packs/Day Years Used Date Smoking Tobacco: Former Cigarettes Q uit: 2012 Smokeless Tobacco: Current Chew Alcohol Use Standard Drinks/Week Comments Yes 0 (1 standard drink = 0.6 oz pur e alcohol) occasionally Sex and Gender Information Value Date Recorded Sex Assigned at Male 07/25/2022 10:25 AM ABRASIVE BAND WINDER Legal Sex Male 10:27 PM CDT Gender Identity Male 07/25/2022 10:25 AM ABRASIVE BAND WINDER Sexual Orientation Straight 07/25/2022 10 :25 AM ABRASIVE BAND WINDER 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 Not on file documented as of this encounter Plan of Treatment Upcoming Encounters Date Type Department Care Team (Late st Contact Info) Description 03/27/2025 7:40 AM CDT Office Visit [facility] Medical [facility] Orthopedic & Sports Medicine - [place] [address] [place] [address] Tito Julien MD [address] [place] [address] 03/27/2025 8:20 AM CDT Office Visit [facility] Pulmonology Specialty Clinic - [place] [address] [place] [phone] Itz Rodrigez DO 3 [facility] [address] [place] [address] 04/21/2025 8:00 AM CDT Office Visit [facility] Family Medicine - [place] [address] [facility] [address] [place] [address] Ruchi Ivory NP [address] [place] [address] 09/01/2025 9:00 AM ABRASIVE BAND WINDER Office Visit [place] [facility] [address] [place] [address] Maryann Fernandez PA 3 [facility], [address] [place] [address] documented as of this encounter Visit Diagnoses Not on filedocumented in this encounter Additional Health Concerns Infection Onset Date Last Indicated Resolved Time COVID-19 Rule Out 07/02/2022 07/02/2022 07/02/2022 8:52 AM ABRASIVE BAND WINDER COVID-19 Rule Out 07/02/2022 07/02/2022 07/03/2022 2:53 PM ABRASIVE BAND WINDER documented as of this encounter Care Teams Counter Supply Worker Relationship Specialty Start Date End Date Mary Bunch MD [address], [place] [address] PCP - General 08/30/14 01/17/16 Mary Bunch MD [address] [place] [address] PCP - General FAMILY PRACTICE 01/18/16 08/19/18 Jessica Negrete, [facility] [address] [place] [address] PCP - General NURSE PRACTITIONER 08/20/18 06/22/22 Ruchi Ivory NP [address] [place] [address] PCP - General NURSE PRACTITIONER 06/23/22 Ruchi Ivory NP [address] [place] [address] NURSE PRACTITIONER 06/23/22 Nicho [place] MD [facility]. [facility] [address] [place] [address] Alexandra Lead Injection Mold Technician INTERVENTIONAL CARDIOLOGY 09/03/18 documented as of this encounter
--- OUTSIDE RECORDS SUMMARY | 2025-03-12 11:17 | XMS_ITS | Encounter Summary ---
Author Organization [facility] Address [address] [place] [address] Care Team Providers Care Band Sewer Name Role Phone Ruchi Ivory NP Primary Care Provider [phone] Ruchi Ivory NP Unavailable [phone] Nicho [place] MD Unavailable [phone] Encounter Details Date Type Department Care Team (Late st Contact Info) Description 09/23/2023 Total-traxt Message Enc [facility] Medical [facility] Family Medicine - [place] [address] [facility] [address] [place] [phone] Ruchi Ivory, OVIDIO [address] [place] [address] [place], [place] [phone] [place] Social History Tobacco Use Types Packs/Day Years Used Date Smoking Tobacco: Former Cigarettes Q uit: 08/31/2018 Passive Smoke Exposure: Never Smokeless Tobacco: Current Chew Comments:RD to financial health counselor Alcohol Use Standard Drinks/Week Comments Yes [...] Sex Assigned at Male 07/25/2022 10:25 AM HEAD OF LOSS PREVENTION Legal Sex Male 10:27 PM CDT Gender Identity Male 07/25/2022 10:25 AM HEAD OF LOSS PREVENTION Sexual Orientation Straight 07/25/2022 10 :25 AM HEAD OF LOSS PREVENTION 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 Not [...] Description 03/27/2025 7:40 AM CDT Office Visit [facility] Medical [facility] Orthopedic & Sports Medicine - [place] [address] [place] [address] Tito Julien MD [address] [place] [address] 03/27/2025 8:20 AM CDT Office Visit [facility] Pulmonology Specialty Clinic - [address] [address] Itz Rodrigez DO 3 [facility] [address] [place] [address] 04/21/2025 8:00 AM CDT Office Visit [facility] Medical [facility] Family Medicine - [place] [address] [facility] [address] [place] [address] Ruchi Ivory NP [address] [place] [address] 09/01/2025 9:00 AM HEAD OF LOSS PREVENTION Office Visit [place] [facility] [address] [place] [address] Maryann Fernandez PA 3 [facility], [address] [place] [address] documented as of this encounter Visit Diagnoses Not on filedocumented in this encounter Care Teams Band Sewer Relationship Specialty Start Date End Date Ruchi Ivory NP [address] [place] [address] PCP - General NURSE PRACTITIONER 06/23/22 Ruchi Ivory NP [address] [place] [address] NURSE PRACTITIONER 06/23/22 Nicho [place]ales MD Three [facility]. [place] [address] [place], [place] [address] [place] Transport Analyst INTERVENTIONAL CARDIOLOGY 09/03/18 documented as of this encounter
--- NOTE | 2025-03-12 11:18 | ED.URI ---
HPI - URI/Sore Throat General Chief Complaint: Upper Respiratory Infection Stated Complaint: sinus infection patient presents to Express Care with complaints of sneezing that started 3 days ago, then noted having a tickle in the back of his throat with sinus drainage the next day than yesterday feeling some headache and fatigue. Today woke up feeling significantly worse with sinus pressure behind his eyes noted this is when he knows he has a sinus infection and needs antibiotics and steroids. Patient reports using Madeline D starting yesterday without relief of symptoms. Patient noted usually once yearly sinus infections where he needs medication. Denies use of sinus rinses, Flonase, or other [id number] medications. No known sick contacts. Denies fever, chills, body aches, shortness of breath, wheezing, difficulty swallowing, dizziness. Related Data Home Medications ?Medication ?Instructions ?Recorded ?Confirmed ?Last Taken ?Type aspirin 81 mg tablet,delayed 1 tablet DAILY 01/12/22 01/12/22 Unknown History release diclofenac sodium 75 mg 1 tablet PO DAILY 01/12/22 03/12/25 Unknown History tablet,delayed release ezetimibe 10 mg tablet 1 tablet DAILY 01/12/22 01/12/22 Unknown History lisinopril 10 mg tablet 1 tablet DAILY 01/12/22 01/12/22 Unknown History pantoprazole 40 mg tablet,delayed 1 tablet PO DAILY 01/12/22 03/12/25 Unknown History release Allergies Allergy/AdvReac Type Severity Reaction Status Date / Time No Known Allergies Allergy Verified 03/12/25 11:17 Review of Systems Constitutional: Constitutional: Reports as per HPI, Denies chills, Reports fatigue, Denies fever(s) and Denies weakness Eyes: Eyes: Reports no additional eye complaints ENT: Reports as per HPI, Denies vertigo, Denies dizziness, Reports nasal congestion and Reports sore throat Cardiovascular: Cardiovascular: Reports no additional cardiovascular complaints Respiratory: Respiratory: Reports as per HPI, Reports chest congestion, Reports cough, Denies dyspnea and Denies wheezing Gastrointestinal: Gastrointestinal: Reports no additional gastrointestinal complaints Genitourinary: Genitourinary: Reports no additional male genitourinary complaints Musculoskeletal: Musculoskeletal: Reports no additional musculoskeletal complaints Integumentary/Breasts: Skin/Breast: Reports system reviewed and no additional complaints, except as docu Neurologic: Reports as per HPI, Denies vertigo, Denies dizziness, Reports headache(s) and Denies weakness Psychiatric: Psychiatric: Reports no additional psychiatric complaints Endocrine: Endocrine: Reports no additional endocrine complaints Hematologic/Lymphatic: Hematologic/Lymphatic: Reports no additional hematologic/lymphatic complaints Allergic/Immunologic: Allergic/Immunologic: Reports as per HPI, Denies lip swelling, Denies throat swelling, Denies tongue swelling and Denies wheezing Comments: Seasonal allergies Exam Const: General: healthy appearing and no acute distress Nutritional Appearance: well nourished Orientation/consciousness: patient oriented x3 Limitations: no limitations HENMT: Head: normal to inspection Ears: external ears normal and TM's normal bilaterally Face/Nose/Sinus: Normal external nose present and nares abnormal ( bilateral erythema with no edema) Face and sinus: normal facial exam and sinus tenderness ( bilateral) maxillary Mouth: Yes Normal oral and palatal mucosa present, Yes lip normal and Yes moist mucous membranes Throat: posterior oropharynx abnormal ( minimal erythema, no edema or exudate) Neck: Neck: normal visual inspection and no lymphadenopathy Other: patient reports tenderness with palpation of lymph node chain Resp: Effort & Inspection: normal respiratory effort Auscultation: clear to auscultation bilaterally Cardio: Rate: regular rate Rhythm: regular rhythm Skin: General skin exam: normal color Rashes: no rashes Wounds: no wounds Neuro: General: patient oriented x3 Speech: normal speech Gait exam (Neuro): Normal gait present Psych: Mental Status: mental status grossly normal Affect: normal affect Attitude: cooperative Course Course Level of Care: Express Care Visit MDM - URI/Sore Throat MDM Narrative Medical decision making narrative: spoke with patient about normal progression of viral and inflammatory sinus symptoms and infection. Noted at this time would not be recommended for patient to start antibiotic. Patient stated he is not happy and the only thing that gets him over this steroids and antibiotic. Noted am okay with prescribing him steroids and if symptoms not improved in 7-10 days he can speak primary care for antibiotics if needed. The patient was evaluated by myself in the express care. History is obtained from patient who is an independent historian and physical exam was performed. Available medical records were reviewed at this time. Exam findings show no acute concerns or changes; patient is non-toxic appearing and is in no distress. Patient is appropriate for outpatient treatment and follow-up. I have evaluated and discussed social determinants of health with the patient that could potentially impact subsequent diagnosis and treatment plans. Differential diagnosis and treatment plan were discussed with the patient. Patient agrees with discussion and after shared medical decision making agrees with plan of care. All questions were answered to the patient's satisfaction. Differential Diagnosis Differential diagnosis: Likely upper respiratory infection, croup, sinusitis, viral infection and pharyngitis Medical Records Attestation: I reviewed the patient's medical records. Lab Data Lab results narrative: Patient declines COVID and flu testing Discharge Plan Discharge Clinical Impression: Viral infection Patient Disposition: Home Condition: Stable Instructions: Antibiotic Form, Upper Respiratory Infection (ED), Cold Symptoms in Children (ED) Additional Instructions: Viral illness may last between 7-12days; antibiotic is NOT recommended at this time. Recommend antihistamine such as Benadryl at night time and Claritin/Zyrtec/Madeline during the day. Also using steroid nasal spray like Flonase can help with symptoms and congestion. Using sudafed for significant congestion will also give some relief. Cough syrup may cause drowsiness; avoid driving or take it at night time. Also, recommend symptomatic treatment includes: rest, fluids, increase humidity of the air at home. Recommend Acetaminophen or nonsteroidal anti-inflammatory agents(NSAIDs) as directed in the bottle to reduce fever and/pain/headache. Avoid smoking/second-hand smoke. Limit visits to areas with large crowds. Frequent hand washing or hand tour director is one of the best ways to prevent spread of infection. Please schedule a followup visit with your personal physician for further evaluation and treatment within 3-5days. Including recheck and discussion of your blood pressure. If your symptoms persist, change or worsen significantly before you can contact your personal physician then please, without delay, go to the emergency department for further evaluation. Patient Language: Cook Islander Prescriptions: New prednisone 50 mg tablet 50 mg PO DAILY Qty: 7 0RF No Action aspirin 81 mg tablet,delayed release (DR/EC) 1 tablet DAILY pantoprazole 40 mg tablet,delayed release (DR/EC) 1 tablet PO DAILY lisinopril 10 mg tablet 1 tablet DAILY diclofenac sodium 75 mg tablet,delayed release (DR/EC) 1 tablet PO DAILY ezetimibe 10 mg tablet 1 tablet DAILY Follow-up/Referrals: Cachorro,LEANDRO Malin [Primary Care Provider, Unknown] Time of Disposition: 11:35
[2025-03-12 11:20] VITALS: BP 105/75; PULSE 91; RESP 18; TEMP 36.9; O2SAT 98
== END 2025-03-12 11:37 | disposition home or self-care (01) ==
PROVIDERS: Emergency Provider Nurse Practitioner Family; PCP Nurse Practitioner
DX: B34.9 Viral infection, unspecified (principal); Z79.82 Long term (current) use of aspirin
CPT/HCPCS: 99213; G0463